=== PATIENT | female | born 1935 | race Caucasian/White ===

== ENCOUNTER 2017-08-12 16:44 | Inpatient (IN) | payer MEDICARE, OTHER ==
--- NOTE | 2017-08-12 17:11 | ED Physician Chart ---
ED Chief Complaint/HPI - Patient Information Date Seen:: 08/12/17 Time Seen:: 16:50 Chief Complaint:: fever generalized weakness History of Present Illness:: 81 yr old female from intermediate facility with generalized weakness fevers pt states having trouble walking and feeling weak and usp she is confused and altered Allergies:: Allergies Allergy/AdvReac Type Severity Reaction Status Date / Time No Known Allergies Allergy Verified 08/12/17 16:56 Vitals:: Vital Signs - 8 hr 08/12/17 16:47 Temp 99.9 F HR 77 RR 18 BP 135/49 O2 Sat % 95 Historian:: Patient, Medical Records ED Review of Systems - Review of Systems General/Constitutional: Fever, Weakness Skin: No skin lesions, No rash, No bruising Head: No headache, No light-headedness Eyes: No loss of vision, No pain, No diplopia ENT: No earache, No nasal drainage, No sore throat, No tinnitus Neck: No neck pain, No swelling, No thyromegaly, No stiffness, No mass noted Cardio Vascular: No chest pain, No palpitations, No PND, No orthopnea, No edema Pulmonary: No SOB, No cough, No sputum, No wheezing GI: No nausea, No vomiting, No diarrhea, No pain, No melena, No hematochezia, No constipation, No hematemesis G/U: No dysuria, No frequency, No hematuria Musculoskeletal: Bone or joint pain, No back pain, No muscle pain Endocrine: No polyuria, No polydipsia Psychiatric: No prior psych history, No depression, No anxiety, No suicidal ideation Hematopoietic: No bruising, No lymphadenopathy Allergic/Immuno: No urticaria, No angioedema Neurological: Weakness ED Past Medical History - Past Medical History Past Medical History: HTN, Thyroid disorder ED Physical Exam - Physical Examination General/Constitutional: Awake, Well-developed, well-nourished, Alert, GCS 15, Ambulatory Head: Atraumatic Eyes: Lids, conjuctiva normal, PERRL, EOMI Skin: No rash ENMT: External ears, nose nl Neck: Nontender Respiratory: Nl effort/Exclusion Cardio Vascular: RRR, No murmur, gallop, rubs GI: No tenderness/rebounding/guarding : No CVA tenderness Extremities: Full ROM, Normal digits & nails (trouble walking feeling weak not able to lift legs due to weakness) Neuro/Psych: Alert/oriented, DTR's symmetric ED Assessment - Assessment General Assessment: generalized weakness ED Septic Shock - . Is Septic Shock (SBP<90, OR Lactate>4 mmol\L) present?: No - <6hrs of presentation: Vital Signs: Vital Signs - 8 hr 08/12/17 16:47 Temp 99.9 F HR 77 RR 18 BP 135/49 O2 Sat % 95 ED Reassessment (Disposition) - Reassessment Reassessment Condition:: Unchanged - Diagnosis Diagnosis:: generalized weakness r/o sepsis ureo sepsis - Patient Disposition Discharge/Transfer:: Acute Care w/in this hosp
[2017-08-12] MEDS ORDERED: Sodium Chloride 0.9% 1,000 ML IV ONE (17:17)
[2017-08-12 17:38] LABS: % BASOPHILS 0.6 % (0.0-2.0); % EOSINOPHILS 3.6 % (0.0-5.0); % LYMPHOCYTES 23.9 % (20.0-50.0); % MONOCYTES 10.1 % (2.0-10.0); % NEUTROPHILS 61.8 % (40.0-80.0); BASOPHILE ABSOLUTE 0.1 Th/cumm (0-0.2); EOSINOPHILE ABSOLUTE 0.3 Th/cmm (0.1-0.4); HEMATOCRIT 37.1 % (41.0-60); HEMOGLOBIN 12.3 gm/dL (12-16); MEAN CELL VOLUME 89.3 fl (81-100); MEAN CORPUSCULAR HEMOGLOBIN 29.7 pg (27.0-31.0); MEAN CORPUSCULAR HGB CONC 33.3 pg (28.0-36.0); MEAN PLATELET VOLUME 6.4 fl; MONOCYTE ABSOLUTE 0.8 Th/cmm (0.3-1.0); NEUTROPHILE ABSOLUTE 5.2 Th/cmm (1.8-8.0); PLATELET COUNT 269 Th/cmm (150-400); RED BLOOD COUNT 4.15 Mil/cmm (3.80-5.20); RED CELL DISTRIBUTION WIDTH 12.8 % (11.5-20.0); WHITE BLOOD COUNT 8.4 Th/cmm (4.8-10.8)
[2017-08-12 17:40] LABS: URINE MICROSCOPIC INDICATED? YES; URINE SOURCE CLEAN C
[2017-08-12 17:54] LABS: ALB/GLOB RATIO 1.1 (1.0-1.8); ALBUMIN 3.4 gm/dL (3.7-5.3); ALKALINE PHOSPHATASE 71 U/L (34-104); ANION GAP 12.5 (7.0-16.0); BILIRUBIN,TOTAL 0.4 mg/dL (0.3-1.0); BUN - UREA NITROGEN 22 mg/dL (7-25); CALCIUM SERUM 9.4 mg/dL (8.6-10.3); CARBON DIOXIDE 25.2 mEq/L (21.0-31.0); CHLORIDE 100 mEq/L (98-107); CREATININE - SERUM 0.9 mg/dL (0.6-1.2); GLUCOSE 103 mg/dL (70-105); POTASSIUM SERUM 3.7 mEq/L (3.5-5.1); SGOT 15 U/L (13-39); SGPT/ALT 13 U/L (7-52); SODIUM SERUM 134 mEq/L (136-145); TOTAL PROTEIN,SERUM 6.4 gm/dL (6.0-8.3)
[2017-08-12 18:09] LABS: URINE CLARITY CLOUDY (CLEAR); URINE COLOR BROWN
[2017-08-12 18:10] LABS: URINE LEUKOCYTE ESTERASE LARGE (NEGATIVE)
[2017-08-12 18:11] LABS: URINE NITRATE NEGATIVE (NEGATIVE); URINE UROBILINOGEN 0.2 E.U./dL (0.2 - 1.0)
[2017-08-12 18:12] LABS: URINE BLOOD SMALL (NEGATIVE); URINE PROTEIN 100 mg/dL (NEGATIVE)
[2017-08-12 18:13] LABS: URINE BILIRUBIN SMALL (NEGATIVE)
[2017-08-12 18:14] LABS: URINE GLUCOSE (UA) NEGATIVE (NEGATIVE)
[2017-08-12 18:15] LABS: URINE KETONE NEGATIVE (NEGATIVE)
[2017-08-12] MEDS ORDERED: Piperacillin Sodium/Tazobact 3.375 gm Vial IV ONE (18:17)
[2017-08-12 18:19] LABS: URINE BACTERIA MANY /hpf (NONE SEEN); URINE EPITHELIAL CELLS FEW /lpf (FEW); URINE WBC >100 /hpf (0-5)
[2017-08-12] MEDS: D5-0.45NS 1,000 ML IV SCH (21:10)
[2017-08-12] MEDS ORDERED: Pneumococcal Vaccine 0.5 mL Vial IM ONE (23:25)
--- NOTE | 2017-08-12 23:33 | Consultation ---
Consult Note - Consult Note Service Date: 08/12/17 Referring Physician: Kvng Gunderson Consult Note: PHYSICIAN Consultation Note: Date of Admission: 08/12/17 Purpose of Consultation: UTI Chief Complaint: Patient CATE TOVAR was admitted to [facility] with UROSEPSIS. History of Present Illness: 81-year-old female with history of obesity, HTN, hypothyroidism brought from [facility] for generalized weakness and fever. On initial evaluation, her temeprature was 99.9 F and WBC Count was 8900. URinalysis showed pyuria and bacteriuria. UTI was diagnosed and Zosyn was started. ID Consult was called for antibiotic management. Past Medical History: obesity, HTN, hypothyroidism. Allergies Allergy/AdvReac Type Severity Reaction Status Date / Time No Known Allergies Allergy Verified 08/12/17 16:56 Vital Signs Temp 97.5 F 08/12/17 20:19 Pulse 71 08/12/17 20:19 Resp 18 08/12/17 20:19 BP 133/49 08/12/17 20:19 Pulse Ox 95 08/12/17 20:19 Intake & Output 08/12/17 08/12/17 08/13/17 06:59 18:59 06:59 Weight (lbs) 86.183 kg Other: Weight Source Patient stated Laboratory Results - last 24 hr 08/12/17 08/12/17 08/12/17 17:25 17:25 17:25 WBC 8.4 RBC 4.15 Hgb 12.3 Hct 37.1 L MCV 89.3 MCH 29.7 MCHC Differential 33.3 RDW 12.8 Plt Count 269 MPV 6.4 Neutrophils % 61.8 Lymphocytes % 23.9 Monocytes % 10.1 H Eosinophils % 3.6 Basophils % 0.6 Sodium 134 L Potassium 3.7 Chloride 100 Carbon Dioxide 25.2 Anion Gap 12.5 BUN 22 Creatinine 0.9 Est GFR ( Amer) TNP Est GFR (Non-Af Amer) TNP BUN/Creatinine Ratio 24.4 Glucose 103 Whole Bld Lactic Acid 0.87 Calcium 9.4 Total Bilirubin 0.4 AST 15 ALT 13 Alkaline Phosphatase 71 Total Protein 6.4 Albumin 3.4 L Globulin 3.0 Albumin/Globulin Ratio 1.1 Urine Source Urine Color Urine Clarity Urine pH Ur Specific [place] Urine Protein Urine Glucose (UA) Urine Ketones Urine Blood Urine Nitrate Urine Bilirubin Urine Urobilinogen Ur Leukocyte Esterase Urine RBC Urine WBC Ur Epithelial Cells Urine Bacteria 08/12/17 17:30 WBC RBC Hgb Hct MCV MCH MCHC Differential RDW Plt Count MPV Neutrophils % Lymphocytes % Monocytes % Eosinophils % Basophils % Sodium Potassium Chloride Carbon Dioxide Anion Gap BUN Creatinine Est GFR ( Amer) Est GFR (Non-Af Amer) BUN/Creatinine Ratio Glucose Whole Bld Lactic Acid Calcium Total Bilirubin AST ALT Alkaline Phosphatase Total Protein Albumin Globulin Albumin/Globulin Ratio Urine Source CLEAN C Urine Color BROWN Urine Clarity CLOUDY H Urine pH 5.0 Ur Specific [place] 1.005 Urine Protein 100 H Urine Glucose (UA) NEGATIVE Urine Ketones NEGATIVE Urine Blood SMALL H Urine Nitrate NEGATIVE Urine Bilirubin SMALL H Urine Urobilinogen 0.2 Ur Leukocyte Esterase LARGE H Urine RBC 5-10 H Urine WBC >100 H Ur Epithelial Cells FEW Urine Bacteria MANY H Home Medication Medication Instructions Recorded Type Calcium Carb & Citrate/Vit D3 1 tab PO DAILY 08/12/17 History [Calcium + D3 ER Tablet] Conjugated Estrogens [Premarin] 0.5 mg PO DAILY 08/12/17 History Cyclosporine [Restasis] 0.05 OP DAILY 08/12/17 History Ferrous Sulfate [Iron] 1 tab PO DAILY 08/12/17 History Gabapentin 1 tab PO DAILY 08/12/17 History Hydrochlorothiazide 1 tab PO DAILY 08/12/17 History Irbesartan [Avapro] 1 tab PO BID 08/12/17 History Lansoprazole 20 mg PO DAILY 08/12/17 History Latanoprost 0.005% Ophth Soln 1 drop HS 08/12/17 History [Xalatan 0.005% Ophth Soln] Levothyroxine [Synthroid] 0.1 mg PO DAILY 08/12/17 History Metoprolol Tartrate 1 tab PO DAILY 08/12/17 History Multivitamin [Multivitamins] 1 tab PO DAILY 08/12/17 History Potassium Chloride [Klor-Con 8] 1 tab PO DAILY 08/12/17 History Prednisone 10 mg PO DAILY 08/12/17 History Sertraline HCl [Zoloft] 100 mg PO BID 08/12/17 History Current Medications Generic Name Dose Route Start Last Admin Trade Name Freq PRN Reason Stop Dose Admin Estrogens Conjugated 0.5 mg 08/13/17 09:00 Premarin PO 10/12/17 08:59 DAILY RAFAEL Protocol Ferrous Sulfate mg 08/13/17 09:00 Iron PO 10/12/17 08:59 DAILY RAFAEL Gabapentin mg 08/13/17 09:00 Neurontin PO 10/12/17 08:59 DAILY RAFAEL Hydrochlorothiazide mg 08/13/17 09:00 Hctz PO 10/12/17 08:59 DAILY RAFAEL Dextrose/Sodium Chloride 1,000 mls @ 75 mls/hr 08/12/17 20:15 08/12/17 21:10 D5-0.45ns IV 10/11/17 20:14 75 mls/hr .[id number] RAFAEL Administration Piperacillin Sod/Tazobactam 50 mls @ 100 mls/hr 08/13/17 00:00 Sod 3.375 gm/ Sodium Chloride IV 10/12/17 00:00 Q6HR RAFAEL Latanoprost 1 drop 08/13/17 21:00 Xalatan 0.005% Ophth Soln EACH EYE 10/12/17 20:59 HS RAFAEL Levothyroxine Sodium 0.1 mg 08/13/17 09:00 Synthroid PO 10/12/17 08:59 DAILY RAFAEL Metoprolol Tartrate 50 mg 08/13/17 09:00 Lopressor PO 10/12/17 08:59 DAILY RAFAEL Miscellaneous 1 tab 08/13/17 09:00 Calcium Carb & Citrate/Vit D3 [Calcium + D3 Er Tablet] PO 10/12/17 08:59 DAILY RAFAEL Miscellaneous 0.05 unit 08/13/17 09:00 Cyclosporine [Restasis] OP 10/12/17 08:59 DAILY RAFAEL Miscellaneous 1 tab 08/13/17 09:00 Irbesartan [Avapro] PO 10/12/17 08:59 BID RAFAEL Miscellaneous 20 mg 08/13/17 09:00 Lansoprazole [Lansoprazole] PO 10/12/17 08:59 DAILY RAFAEL Miscellaneous 1 tab 08/13/17 09:00 Multivitamin [Multivitamins] PO 10/12/17 08:59 DAILY RAFAEL Miscellaneous 1 tab 08/13/17 09:00 Potassium Chloride [Klor-Con 8] PO 10/12/17 08:59 DAILY RAFAEL Miscellaneous 10 mg 08/13/17 09:00 Prednisone [Prednisone] PO 10/12/17 08:59 DAILY RAFAEL Miscellaneous 100 mg 08/13/17 09:00 Sertraline Hcl [Zoloft] PO 10/12/17 08:59 BID RAFAEL Review of Systems: A 12 point ROS was reviewed with the pertinent positive and negatives noted in the HPI. Social History Smoking Status Unknown if ever smoked Family Medical History Non-significant. Physical Exam: General: Obese HEENT: HEAD: NC NT oral cavity: moist, pink tongue. EYED: No pallor, no icterus. Pupil PERRLA. EOMI. Neck: Supple, no JVD. No carotid bruit. Cardio: S1 and S2 WNL, no murmur. Respiratory: CTAP. Abdominal: Soft, NT ND BS present. Genital/Urinary: deferred Extremities: NCCE Neurological: AAOx3. Assessment: 1. UTI. 2. HTN. 3. OBESITY. 4. Hypothyroidism. Plan: Continue Zosyn, follow up cs and renal us. Thank you, Dr Gunderson for involving me in taking care of this patient. Candace, Sheldon Dong M.D. [id number]
[2017-08-13] MEDS ORDERED: Piperacillin Sodium/Tazobact 2.25 gm Vial IV ONE ×2 (00:25→05:29)
[2017-08-13 05:04] LABS: % BASOPHILS 0.1 % (0.0-2.0); % EOSINOPHILS 4.5 % (0.0-5.0); % LYMPHOCYTES 18.5 % (20.0-50.0); % MONOCYTES 9.3 % (2.0-10.0); % NEUTROPHILS 67.6 % (40.0-80.0); EOSINOPHILE ABSOLUTE 0.3 Th/cmm (0.1-0.4); HEMATOCRIT 34.1 % (41.0-60); HEMOGLOBIN 11.5 gm/dL (12-16); LYMPHOCYTE ABSOLUTE 1.3 Th/cmm (1.5-3.0); MEAN CORPUSCULAR HEMOGLOBIN 29.6 pg (27.0-31.0); MEAN CORPUSCULAR HGB CONC 33.6 pg (28.0-36.0); MEAN PLATELET VOLUME 6.5 fl; MONOCYTE ABSOLUTE 0.7 Th/cmm (0.3-1.0); NEUTROPHILE ABSOLUTE 4.7 Th/cmm (1.8-8.0); PLATELET COUNT 236 Th/cmm (150-400); RED BLOOD COUNT 3.88 Mil/cmm (3.80-5.20); RED CELL DISTRIBUTION WIDTH 12.9 % (11.5-20.0)
[2017-08-13 05:20] LABS: ANION GAP 10.2 (7.0-16.0); BUN - UREA NITROGEN 16 mg/dL (7-25); CALCIUM SERUM 8.5 mg/dL (8.6-10.3); CARBON DIOXIDE 24.4 mEq/L (21.0-31.0); CHLORIDE 104 mEq/L (98-107); CHOLESTEROL 138 mg/dL (<200); CREATININE - SERUM 0.9 mg/dL (0.6-1.2); GLUCOSE 117 mg/dL (70-105); HDL -HIGH DENSITY LIPOPROTEIN 28 mg/dL (23-92); POTASSIUM SERUM 3.6 mEq/L (3.5-5.1); SODIUM SERUM 135 mEq/L (136-145); TRIGLYCERIDES 131 mg/dL (<150)
[2017-08-13 06:22] VITALS: BP 133/49
[2017-08-13] MEDS: Pantoprazole 40 mg EC Tab PO SCH (06:48)
[2017-08-13] MEDS: Levothyroxine 0.1 Mg Tab PO SCH (06:48)
--- NOTE | 2017-08-13 08:16 | Diagnostic Imaging Report ---
CHEST X-RAY: AP view INDICATION: Shortness of breath COMPARISON: None FINDINGS: There is elevation of the right hemidiaphragm. Retrocardiac density is noted. There may be left basal pleural thickening. No focal consolidation. Heart size at the upper limits of normal. Atherosclerosis is noted. Degenerative changes of the spine are noted with scoliosis. Degenerative changes of bilateral shoulders are noted. IMPRESSION: Retrocardiac density. There this may be due to a large hiatal hernia. If indicated, CT would further clarify. Atherosclerotic vascular disease. Elevation of the right hemidiaphragm.
[2017-08-13] MEDS ORDERED: CYCLOSPORINE OP SCH (09:00)
[2017-08-13] MEDS ORDERED: LANSOPRAZOLE 20 MG PO SCH (09:00)
[2017-08-13] MEDS ORDERED: Non-Formulary Item 1 EA (Multivitamin [Multivitamins] 1 TAB) PO SCH (09:00)
--- NOTE | 2017-08-13 09:03 | Diagnostic Imaging Report ---
Head CT without intravenous contrast Indication: Altered mental status Comparison: None Technique: Axial images were obtained from the vertex to the skull base without IV contrast. Coronal reconstructions were made. Total DLP: 570, [id number] FINDINGS: Images of the brain obtained without contrast demonstrate no evidence of acute hemorrhage. Atrophy is noted. Diffuse white matter disease noted. The ventricles and basal cisterns are patent. No mass effect or midline shift. No evidence of a skull fracture or focal soft tissue swelling. The visualized paranasal sinuses are clear. IMPRESSION No evidence of acute intracranial hemorrhage. Diffuse supratentorial white matter disease which is nonspecific and may be due to chronic microvessel ischemia. Atrophy. Atherosclerotic vascular disease.
[2017-08-13] MEDS ORDERED: VTE Chemical Prophylaxis Screen/Admission MC PRN (10:00)
[2017-08-13] MEDS: Calcium Carb/Vit D 500 mg/200 U Tab PO SCH (10:03)
[2017-08-13] MEDS: Ferrous Sulfate 325 MG TAB PO SCH (10:03)
[2017-08-13] MEDS: Multivitamin Tab PO SCH (10:05)
[2017-08-13] MEDS: Potassium Chloride 10 mEq ER Tab PO SCH (10:07)
--- NOTE | 2017-08-13 12:08 | Infectious Disease Prog Note ---
Infectious Disease Subjective - Review of Systems Service Date: 08/13/17 Subjective: No fever. mentation improved. Infectious Disease Objective - Results Result Diagrams: 08/13/17 04:55 08/13/17 04:55 Recent Labs: Laboratory Last Values WBC 7.0 Th/cmm (4.8-10.8) 08/13/17 04:55 RBC 3.88 Mil/cmm (3.80-5.20) 08/13/17 04:55 Hgb 11.5 gm/dL (12-16) L 08/13/17 04:55 Hct 34.1 % (41.0-60) L 08/13/17 04:55 MCV 88.0 fl (81-100) 08/13/17 04:55 MCH 29.6 pg (27.0-31.0) 08/13/17 04:55 MCHC Differential 33.6 pg (28.0-36.0) 08/13/17 04:55 RDW 12.9 % (11.5-20.0) 08/13/17 04:55 Plt Count 236 Th/cmm (150-400) 08/13/17 04:55 MPV 6.5 fl 08/13/17 04:55 Neutrophils % 67.6 % (40.0-80.0) 08/13/17 04:55 Lymphocytes % 18.5 % (20.0-50.0) L 08/13/17 04:55 Monocytes % 9.3 % (2.0-10.0) 08/13/17 04:55 Eosinophils % 4.5 % (0.0-5.0) 08/13/17 04:55 Basophils % 0.1 % (0.0-2.0) 08/13/17 04:55 Sodium 135 mEq/L (136-145) L 08/13/17 04:55 Potassium 3.6 mEq/L (3.5-5.1) 08/13/17 04:55 Chloride 104 mEq/L (98-107) 08/13/17 04:55 Carbon Dioxide 24.4 mEq/L (21.0-31.0) 08/13/17 04:55 Anion Gap 10.2 (7.0-16.0) 08/13/17 04:55 BUN 16 mg/dL (7-25) 08/13/17 04:55 Creatinine 0.9 mg/dL (0.6-1.2) 08/13/17 04:55 Est GFR ( Amer) TNP 08/13/17 04:55 Est GFR (Non-Af Amer) TNP 08/13/17 04:55 BUN/Creatinine Ratio 17.8 08/13/17 04:55 Glucose 117 mg/dL (70-105) H 08/13/17 04:55 Whole Bld Lactic Acid 0.87 mmol/L (0.60-1.99) 08/12/17 17:25 Calcium 8.5 mg/dL (8.6-10.3) L 08/13/17 04:55 Total Bilirubin 0.4 mg/dL (0.3-1.0) 08/12/17 17:25 AST 15 U/L (13-39) 08/12/17 17:25 ALT 13 U/L (7-52) 08/12/17 17:25 Alkaline Phosphatase 71 U/L (34-104) 08/12/17 17:25 Total Protein 6.4 gm/dL (6.0-8.3) 08/12/17 17:25 Albumin 3.4 gm/dL (3.7-5.3) L 08/12/17 17:25 Globulin 3.0 gm/dL 08/12/17 17:25 Albumin/Globulin Ratio 1.1 (1.0-1.8) 08/12/17 17:25 Triglycerides 131 mg/dL (<150) 08/13/17 04:55 Cholesterol 138 mg/dL (<200) 08/13/17 04:55 LDL Cholesterol Direct 83 mg/dL (75-193) 08/13/17 04:55 HDL Cholesterol 28 mg/dL (23-92) 08/13/17 04:55 TSH 3.47 uIU/ml (0.34-5.60) 08/13/17 04:55 Urine Source CLEAN C 08/12/17 17:30 Urine Color BROWN 08/12/17 17:30 Urine Clarity CLOUDY (CLEAR) H 08/12/17 17:30 Urine pH 5.0 (4.6 - 8.0) 08/12/17 17:30 Ur Specific [place] 1.005 (1.005-1.030) 08/12/17 17:30 Urine Protein 100 mg/dL (NEGATIVE) H 08/12/17 17:30 Urine Glucose (UA) NEGATIVE mg/dL (NEGATIVE) 08/12/17 17:30 Urine Ketones NEGATIVE mg/dL (NEGATIVE) 08/12/17 17:30 Urine Blood SMALL (NEGATIVE) H 08/12/17 17:30 Urine Nitrate NEGATIVE (NEGATIVE) 08/12/17 17:30 Urine Bilirubin SMALL (NEGATIVE) H 08/12/17 17:30 Urine Urobilinogen 0.2 E.U./dL (0.2 - 1.0) 08/12/17 17:30 Ur Leukocyte Esterase LARGE (NEGATIVE) H 08/12/17 17:30 Urine RBC 5-10 /hpf (0-5) H 08/12/17 17:30 Urine WBC >100 /hpf (0-5) H 08/12/17 17:30 Ur Epithelial Cells FEW /lpf (FEW) 08/12/17 17:30 Urine Bacteria MANY /hpf (NONE SEEN) H 08/12/17 17:30 - Physical Exam Vitals and I&O: Vital Signs Temp 96.3 F 08/13/17 12:01 Pulse 72 08/13/17 12:01 Resp 18 08/13/17 12:01 BP 149/73 08/13/17 12:01 Pulse Ox 95 08/13/17 12:01 Intake & Output 08/12/17 08/13/17 08/13/17 18:59 06:59 18:59 Intake Total 50 50 Output Total 300 Balance -250 50 Weight (lbs) 86.183 kg 68.039 kg Intake: Intake, IV Amount 50 50 Piperacillin Sodium/ 50 50 Tazobact 2.25 gm In Sodium Chloride 0.9% 50 ml @ 100 mls/hr IV Q6HR [facility] Rx#:[id number] Output: Urine 300 Other: # Bowel Movements 0 Weight Source Patient stated Bedscale Active Medications: Current Medications Calcium/Vitamin D (Oscal W/Vitamin D) 1 tab PO DAILY RAFAEL Stop: 10/12/17 08:59 Last Admin: 08/13/17 10:03 Dose: 1 tab Estrogens Conjugated (Premarin) 0.6 mg PO DAILY [facility]; Protocol Stop: 10/13/17 08:59 Ferrous Sulfate (Iron) 325 mg PO DAILY RAFAEL Stop: 10/12/17 08:59 Last Admin: 08/13/17 10:03 Dose: 325 mg Gabapentin (Neurontin) 300 mg PO DAILY RAFAEL Stop: 10/12/17 08:59 Last Admin: 08/13/17 10:04 Dose: 300 mg Heparin Sodium (Porcine) (Heparin) 5,000 units SUBQ Q12HR RAFAEL Stop: 10/12/17 20:59 Hydrochlorothiazide (Hctz) 25 mg PO DAILY RAFAEL Stop: 10/12/17 08:59 Last Admin: 08/13/17 10:04 Dose: 25 mg Dextrose/Sodium Chloride (D5-0.45ns) 1,000 mls @ 75 mls/hr IV .[id number] RAFAEL Stop: 10/11/17 20:14 Last Admin: 08/12/17 21:10 Dose: 75 mls/hr Piperacillin Sod/Tazobactam (Sod 2.25 gm/ Sodium Chloride) 50 mls @ 100 mls/hr IV Q6HR RAFAEL Stop: 10/12/17 00:00 Last Admin: 08/13/17 11:05 Dose: 100 mls/hr Latanoprost (Xalatan 0.005% [facility]) 1 drop EACH EYE HS RAFAEL Stop: 10/13/17 20:59 Levothyroxine Sodium (Synthroid) 0.1 mg PO QDAC RAFAEL Stop: 10/12/17 07:29 Last Admin: 08/13/17 06:48 Dose: 0.1 mg Losartan Potassium (Cozaar) 50 mg PO BID RAFAEL Stop: 10/12/17 08:59 Last Admin: 08/13/17 10:04 Dose: 50 mg Metoprolol Tartrate (Lopressor) 50 mg PO DAILY RAFAEL Stop: 10/12/17 08:59 Last Admin: 08/13/17 10:05 Dose: 50 mg Miscellaneous (Cyclosporine [Restasis]) 0.05 unit OP DAILY RAFAEL Stop: 10/12/17 08:59 Miscellaneous ([employer] Prophylaxis Screen/ Admission) 1 [facility] PRN PRN PRN Reason: PROTOCOL Stop: 10/12/17 09:59 Multivitamins/Vitamin C (Theragran) 1 tab PO DAILY RAFAEL Stop: 10/12/17 08:59 Last Admin: 08/13/17 10:05 Dose: 1 tab Pantoprazole Sodium (Protonix) 40 mg PO DAILY@0700 [facility] Stop: 10/12/17 06:59 Last Admin: 08/13/17 06:48 Dose: 40 mg Potassium Chloride (Klor-Con) 10 meq PO DAILY [facility] Stop: 10/12/17 08:59 Last Admin: 08/13/17 10:07 Dose: 10 meq Prednisone (Deltasone) 10 mg PO DAILY RAFAEL Stop: 10/12/17 08:59 Last Admin: 08/13/17 10:06 Dose: 10 mg Sertraline HCl (Zoloft) 100 mg PO BID [facility] Stop: 10/12/17 08:59 Last Admin: 08/13/17 10:06 Dose: 100 mg General: no acute distress, well developed, well nourished HEENT: atraumatic, normocephalic, PERRLA Neck: supple, no thyromegaly Cardiovascular: S1S2, regular Lungs: clear to auscultation bilaterally, clear to percussion Abdomen: soft, no tender, no distended, no mass Extremities: no cyanosis, no clubbing Neurological: awake, alert, oriented Skin: intact Infectious Disease Assmt/Plan - Assessment Assessment: 1. UTI. 2. HTN. 3. OBESITY. 4. Hypothyroidism. - Plan Plan: Continue Zosyn. F/u culture report. renal u/s.
--- NOTE | 2017-08-13 13:27 | Diagnostic Imaging Report ---
Renal ultrasound HISTORY: Urosepsis. COMPARISON: None Technique: Sonography of the kidneys and urinary bladder was performed in multiple planes. FINDINGS: Exam is limited due to body habitus. The right kidney measures 9.5 x 6.4 cm. The renal margins are poorly defined assessment focal lesions. There is a sonolucent lesion seen along the mid kidney measuring 2.5 x 2.3 cm with possible small calcification. Assessment for right hydronephrosis is limited, however, no gross hydronephrosis identified The left kidney measures 8.9 x 4.7 cm. The left renal margin is not well-defined, however, no obvious focal lesions or hydronephrosis. There is increased echogenicity of the kidneys. The urinary bladder is collapsed containing a Garcia catheter. Urinary bladder wall thickening is noted. IMPRESSION: Markedly Limited exam due to body habitus. Right mid renal lesion probably representing a cyst with a calcification. This lesion measures 2.5 x 2.3 cm. Assessment for hydronephrosis is limited, however, no gross hydronephrosis identified. If indicated CT follow-up with further clarify. Increased echogenicity of the kidneys which may be due to underlying medical renal disease. Collapsed urinary bladder containing a Garcia catheter. There is urinary bladder wall thickening which may be due to chronic infectious or inflammatory process.
[2017-08-13] MEDS: D5-0.45NS 1,000 ML IV SCH (16:04)
[2017-08-14] MEDS: D5-0.45NS 1,000 ML IV SCH ×2 (05:37→23:48)
[2017-08-14] MEDS: Pantoprazole 40 mg EC Tab PO SCH (06:39)
[2017-08-14] MEDS: Levothyroxine 0.1 Mg Tab PO SCH (06:39)
--- NOTE | 2017-08-14 07:12 | History & Physical ---
ADMIT DATE: HISTORY OF PRESENT ILLNESS: This is a patient I saw her last night. The patient is well known to me from ____ which is a board and care. The patient has been located with history of multiple medical problems including history of severe osteoarthritis, history of osteoporosis, history of fibromyalgia, and history of hypothyroidism, obesity, and hypertension. The patient apparently has not been eating for several days, has been having urinary discomfort, and the patient came to the Emergency Room ____, the patient was altered. The patient was diagnosed as urinary infection, sepsis with urinary tract infection, and the patient was admitted. The patient also has history of dementia. PAST MEDICAL HISTORY: Obesity, hypertension, hypothyroidism, dementia, fibromyalgia, osteoarthritis, osteoporosis. PHYSICAL EXAMINATION: HEAD: Normal. ENT: Normal. NECK: Supple, nontender. LUNGS: Clear. CARDIOVASCULAR SYSTEM: S1 and S2 heard. ABDOMEN: Soft. Bowel sounds are heard. CENTRAL NERVOUS SYSTEM: Decreased sensorium, ____ confusion. LABORATORY DATA: The patient's laboratory data was reviewed. Also, I reviewed her medication list and the patient's urinalysis showed infection. DIAGNOSES: Altered level of consciousness, encephalopathy, urinary tract infection, urosepsis, hypertension, obesity, hypothyroidism, history of fibromyalgia, history of osteoarthritis, history of osteoporosis, and possible sleep apnea. The patient is being admitted. I will go ahead and do a complete infectious workup and give her antibiotics as vancomycin and Zosyn and I will call Infectious Disease doctor to see the patient, also Dr. Munoz to see the patient, and I will also have ____ to see the patient. JOB# [id number]
--- NOTE | 2017-08-14 07:15 | Consultation ---
DATE OF CONSULTATION: 08/13/2017 REFERRING PHYSICIAN: Dr. Gunderson. Thank you very much Dr. Gunderson for this consultation. HISTORY OF PRESENT ILLNESS: This is a 54-year-old female with retirement resident, presented with weakness and some altered mentation has improved since coming in. Denies any shortness of breath, was diagnosed with a UTI and admitted for treatment and management. The patient has no leukocytosis on admission. PAST MEDICAL HISTORY: Significant for dementia, obesity, hypertension. SOCIAL HISTORY: No smoking, drinking, or drug use. REVIEW OF SYSTEMS: GENERAL: Some weakness and fatigue. CARDIOVASCULAR: No chest pain. RESPIRATORY: No shortness of breath. GASTROINTESTINAL: No nausea or vomiting. PHYSICAL EXAMINATION: GENERAL: Awake, alert, not in acute distress. VITAL SIGNS: Temperature is 97.1, pulse 77, respiration is 18, blood pressure is 158/70, saturation 95%. HEENT: Atraumatic, normocephalic. Pupils are equal and reactive to light and accommodation. Ears, nose and throat normal. NECK: Supple. No JVD. CHEST: There are good breath sounds bilaterally. No wheezing or crackles. HEART: Regular rate and rhythm. ABDOMEN: Soft. EXTREMITIES: No edema. IMAGING DATA: Chest x-ray shows density above the diaphragm area on the left side with atelectasis. LABORATORY DATA: WBC 7.0, hemoglobin 11.5, hematocrit 34.1, platelets 236. Sodium 135, potassium 3.6, BUN 16, creatinine 0.9. UA is cloudy, positive for WBCs and bacteria, leukocyte esterase. IMPRESSION: 1. This is an 81-year-old female with urinary tract infection. 2. Probably atelectasis of the lower thickening in the left lower lobe area. PLAN: We will do CT chest for further evaluation. Continue IV antibiotics and hydration and supportive care. Thank you very much for this consultation. We will follow the patient with you. JOB# [id number]
[2017-08-14] MEDS ORDERED: Probiotic Screen MC PRN (08:15)
[2017-08-14] MEDS: Lactobacillus Rhamnosus GG 15 Billion CFU CAP.SPRINK PO SCH (08:53)
[2017-08-14] MEDS: Multivitamin Tab PO SCH (08:53)
[2017-08-14] MEDS: Ferrous Sulfate 325 MG TAB PO SCH (08:53)
[2017-08-14] MEDS: Calcium Carb/Vit D 500 mg/200 U Tab PO SCH (08:53)
[2017-08-14] MEDS: Potassium Chloride 10 mEq ER Tab PO SCH (08:54)
--- NOTE | 2017-08-14 11:45 | Internal Medicine Prog Note ---
Internal Medicine Subjective - Subjective Service Date: 08/14/17 Patient seen and examined:: with staff Patient is:: awake Per staff patient has:: tolerating meds Internal Medicine Objective - Results Result Diagrams: 08/13/17 04:55 08/13/17 04:55 Recent Labs: Laboratory Last Values WBC 7.0 Th/cmm (4.8-10.8) 08/13/17 04:55 RBC 3.88 Mil/cmm (3.80-5.20) 08/13/17 04:55 Hgb 11.5 gm/dL (12-16) L 08/13/17 04:55 Hct 34.1 % (41.0-60) L 08/13/17 04:55 MCV 88.0 fl (81-100) 08/13/17 04:55 MCH 29.6 pg (27.0-31.0) 08/13/17 04:55 MCHC Differential 33.6 pg (28.0-36.0) 08/13/17 04:55 RDW 12.9 % (11.5-20.0) 08/13/17 04:55 Plt Count 236 Th/cmm (150-400) 08/13/17 04:55 MPV 6.5 fl 08/13/17 04:55 Neutrophils % 67.6 % (40.0-80.0) 08/13/17 04:55 Lymphocytes % 18.5 % (20.0-50.0) L 08/13/17 04:55 Monocytes % 9.3 % (2.0-10.0) 08/13/17 04:55 Eosinophils % 4.5 % (0.0-5.0) 08/13/17 04:55 Basophils % 0.1 % (0.0-2.0) 08/13/17 04:55 Sodium 135 mEq/L (136-145) L 08/13/17 04:55 Potassium 3.6 mEq/L (3.5-5.1) 08/13/17 04:55 Chloride 104 mEq/L (98-107) 08/13/17 04:55 Carbon Dioxide 24.4 mEq/L (21.0-31.0) 08/13/17 04:55 Anion Gap 10.2 (7.0-16.0) 08/13/17 04:55 BUN 16 mg/dL (7-25) 08/13/17 04:55 Creatinine 0.9 mg/dL (0.6-1.2) 08/13/17 04:55 Est GFR ( Amer) TNP 08/13/17 04:55 Est GFR (Non-Af Amer) TNP 08/13/17 04:55 BUN/Creatinine Ratio 17.8 08/13/17 04:55 Glucose 117 mg/dL (70-105) H 08/13/17 04:55 Whole Bld Lactic Acid 0.87 mmol/L (0.60-1.99) 08/12/17 17:25 Calcium 8.5 mg/dL (8.6-10.3) L 08/13/17 04:55 Total Bilirubin 0.4 mg/dL (0.3-1.0) 08/12/17 17:25 AST 15 U/L (13-39) 08/12/17 17:25 ALT 13 U/L (7-52) 08/12/17 17:25 Alkaline Phosphatase 71 U/L (34-104) 08/12/17 17:25 Total Protein 6.4 gm/dL (6.0-8.3) 08/12/17 17:25 Albumin 3.4 gm/dL (3.7-5.3) L 08/12/17 17:25 Globulin 3.0 gm/dL 08/12/17 17:25 Albumin/Globulin Ratio 1.1 (1.0-1.8) 08/12/17 17:25 Triglycerides 131 mg/dL (<150) 08/13/17 04:55 Cholesterol 138 mg/dL (<200) 08/13/17 04:55 LDL Cholesterol Direct 83 mg/dL (75-193) 08/13/17 04:55 HDL Cholesterol 28 mg/dL (23-92) 08/13/17 04:55 TSH 3.47 uIU/ml (0.34-5.60) 08/13/17 04:55 Urine Source CLEAN C 08/12/17 17:30 Urine Color BROWN 08/12/17 17:30 Urine Clarity CLOUDY (CLEAR) H 08/12/17 17:30 Urine pH 5.0 (4.6 - 8.0) 08/12/17 17:30 Ur Specific [place] 1.005 (1.005-1.030) 08/12/17 17:30 Urine Protein 100 mg/dL (NEGATIVE) H 08/12/17 17:30 Urine Glucose (UA) NEGATIVE mg/dL (NEGATIVE) 08/12/17 17:30 Urine Ketones NEGATIVE mg/dL (NEGATIVE) 08/12/17 17:30 Urine Blood SMALL (NEGATIVE) H 08/12/17 17:30 Urine Nitrate NEGATIVE (NEGATIVE) 08/12/17 17:30 Urine Bilirubin SMALL (NEGATIVE) H 08/12/17 17:30 Urine Urobilinogen 0.2 E.U./dL (0.2 - 1.0) 08/12/17 17:30 Ur Leukocyte Esterase LARGE (NEGATIVE) H 08/12/17 17:30 Urine RBC 5-10 /hpf (0-5) H 08/12/17 17:30 Urine WBC >100 /hpf (0-5) H 08/12/17 17:30 Ur Epithelial Cells FEW /lpf (FEW) 08/12/17 17:30 Urine Bacteria MANY /hpf (NONE SEEN) H 08/12/17 17:30 - Physical Exam Vitals and I&O: Vital Signs Temp 97.2 F 08/14/17 07:36 Pulse 66 08/14/17 08:54 Resp 18 08/14/17 09:13 BP 171/58 08/14/17 08:54 Pulse Ox 95 08/14/17 07:36 Intake & Output 08/13/17 08/14/17 08/14/17 18:59 06:59 18:59 Intake Total 1150 1150 Output Total 751 Balance 1150 399 Weight (lbs) 150 lb Intake: Intake, IV Amount 1150 1100 D5-0.45NS 1,000 ml @ 75 1000 1000 mls/hr IV .[id number] [facility] Rx #:[id number] Piperacillin Sodium/ 150 100 Tazobact 2.25 gm In Sodium Chloride 0.9% 50 ml @ 100 mls/hr IV Q6HR [facility] Rx#:[id number] Oral 50 Output: Urine 750 Stool 1 Other: Weight Source Bedscale Active Medications: Current Medications Calcium/Vitamin D (Oscal W/Vitamin D) 1 tab PO DAILY [facility] Stop: 10/12/17 08:59 Last Admin: 08/14/17 08:53 Dose: 1 tab Estrogens Conjugated (Premarin) 0.6 mg PO DAILY [facility]; Protocol Stop: 10/13/17 08:59 Ferrous Sulfate (Iron) 325 mg PO DAILY [facility] Stop: 10/12/17 08:59 Last Admin: 08/14/17 08:53 Dose: 325 mg Gabapentin (Neurontin) 300 mg PO DAILY [facility] Stop: 10/12/17 08:59 Last Admin: 08/14/17 08:53 Dose: 300 mg Heparin Sodium (Porcine) (Heparin) 5,000 units SUBQ Q12HR [facility] Stop: 10/12/17 20:59 Last Admin: 08/14/17 08:55 Dose: 5,000 units Hydrochlorothiazide (Hctz) 25 mg PO DAILY [facility] Stop: 10/12/17 08:59 Last Admin: 08/14/17 08:54 Dose: 25 mg Dextrose/Sodium Chloride (D5-0.45ns) 1,000 mls @ 75 mls/hr IV .[id number] [facility] Stop: 10/11/17 20:14 Last Admin: 08/14/17 05:37 Dose: 75 mls/hr Piperacillin Sod/Tazobactam (Sod 2.25 gm/ Sodium Chloride) 50 mls @ 100 mls/hr IV Q6HR [facility] Stop: 10/12/17 00:00 Last Admin: 08/14/17 11:30 Dose: 100 mls/hr Lactobacillus Rhamnosus (Culturelle 15b) 1 each PO DAILY [facility] Stop: 10/13/17 08:59 Last Admin: 08/14/17 08:53 Dose: 1 each Latanoprost (Xalatan 0.005% [facility]) 1 drop EACH EYE HS [facility] Stop: 10/13/17 20:59 Levothyroxine Sodium (Synthroid) 0.1 mg PO QDAC [facility] Stop: 10/12/17 07:29 Last Admin: 08/14/17 06:39 Dose: 0.1 mg Losartan Potassium (Cozaar) 50 mg PO BID [facility] Stop: 10/12/17 08:59 Last Admin: 08/14/17 08:54 Dose: 50 mg Metoprolol Tartrate (Lopressor) 50 mg PO DAILY [facility] Stop: 10/12/17 08:59 Last Admin: 08/14/17 08:54 Dose: 50 mg Miscellaneous (Cyclosporine [Restasis]) 0.05 unit OP DAILY [facility] Stop: 10/12/17 08:59 Miscellaneous (Vte Chemical Prophylaxis Screen/ Admission) 1 ea [facility] PRN PRN PRN Reason: PROTOCOL Stop: 10/12/17 09:59 Miscellaneous (Probiotic Screen) 1 ea MC PRN PRN PRN Reason: PROTOCOL Stop: 10/13/17 08:14 Multivitamins/Vitamin C (Theragran) 1 tab PO DAILY [facility] Stop: 10/12/17 08:59 Last Admin: 08/14/17 08:53 Dose: 1 tab Pantoprazole Sodium (Protonix) 40 mg PO DAILY@0700 [facility] Stop: 10/12/17 06:59 Last Admin: 08/14/17 06:39 Dose: 40 mg Potassium Chloride (Klor-Con) 10 meq PO DAILY [facility] Stop: 10/12/17 08:59 Last Admin: 08/14/17 08:54 Dose: 10 meq Prednisone (Deltasone) 10 mg PO DAILY [facility] Stop: 10/12/17 08:59 Last Admin: 08/14/17 08:53 Dose: 10 mg Sertraline HCl (Zoloft) 100 mg PO BID [facility] Stop: 10/12/17 08:59 Last Admin: 08/14/17 08:53 Dose: 100 mg General: alert HEENT: NC/AT, PERRLA Neck: Supple Lungs: CTAB Cardiovascular: RRR, Normal S1, Normal S2, without murmur Abdomen: soft, non-tender, non-distended Internal Medicine Assmt/Plan - Assessment Assessment: UTI. HTN. OBESITY. Hypothyroidism. - Plan Plan: ivabx as per id follow up labs in am continue current plan of care await for cultures
--- NOTE | 2017-08-14 11:59 | Diagnostic Imaging Report ---
Exam: CT examination of chest HISTORY: Lung atelectasis. Total DLP equals 660 CTDI equals 12.3 Findings: Multiple contiguous thin section of the chest were obtained from thoracic outlet to the upper abdomen without the administration of contrast material therefore the study is limited. The study demonstrates normal appearance of great vessels of the neck. Adenopathy is difficult to exclude due to lack of contrast material The aortic arch calcified. Mediastinal structures midline no abnormal adenopathy is noted. There is evidence for atelectatic changes in left base. Mild pleural thickening is noted bilaterally. There is a small right pleural effusion. The visualized the upper abdomen is intact. Bony structures unremarkable for degenerative changes distal thoracic spine. Right renal cyst appreciated. IMPRESSION: Basilar atelectasis with pleural thickening bilaterally. Question of small right pleural effusion.
--- NOTE | 2017-08-14 12:04 | Diagnostic Imaging Report ---
Exam: CT examination abdomen pelvis. HISTORY: Right renal lesion. Total DLP equals 660 CTDI equals 12.3 Findings: Multiple contiguous thin section of the chest were obtained from lower thorax to pubic symphysis without the administration of oral or intravenous contrast material therefore the study is limited. The study demonstrates basilar atelectasis pleural thickening or small right pleural effusion The visualized liver parenchyma is intact. The spleen is normal. Vascular calcification appreciated. Right kidney demonstrates distended proximal right renal pelvis measuring 3.9 cm in transverse diameter. No free fluid is noted. The bowel gas to be some nonspecific. The pancreas is intact. The gallbladder is not seen. 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 Urinary bladder contracted with Garcia catheter. Urinary bladder wall is thickened. Multiple granulomas are noted in the pelvic area. IMPRESSION: Distended the right renal pelvis extending into the proximal ureter without acute obstruction there is no evidence for nephrolithiasis. Atherosclerotic calcification of abdominal aorta Extensive degenerative changes of distal thoracic spine Fecal impaction the rectum. Contracted urinary bladder with a Garcia catheter. Urinary bladder wall is thickened. Clinical correlation recommended.
[2017-08-15] MEDS: Levothyroxine 0.1 Mg Tab PO SCH (06:40)
[2017-08-15] MEDS: Pantoprazole 40 mg EC Tab PO SCH (06:40)
[2017-08-15] MEDS: Ferrous Sulfate 325 MG TAB PO SCH (10:06)
[2017-08-15] MEDS: Lactobacillus Rhamnosus GG 15 Billion CFU CAP.SPRINK PO SCH (10:09)
[2017-08-15] MEDS: Multivitamin Tab PO SCH (10:09)
[2017-08-15] MEDS: Calcium Carb/Vit D 500 mg/200 U Tab PO SCH (10:10)
[2017-08-15] MEDS: Potassium Chloride 10 mEq ER Tab PO SCH (10:10)
[2017-08-15] MEDS: cefTRIAXone 1 GM in Sodium Chloride 0.9% 50 ML IV SCH (10:36)
--- NOTE | 2017-08-15 13:14 | General Progress Note ---
Subjective - Review of Systems Events since last encounter: awake tolerating ,meds well Objective - Results Result Diagrams: 08/13/17 04:55 08/13/17 04:55 Recent Labs: Laboratory Last Values WBC 7.0 Th/cmm (4.8-10.8) 08/13/17 04:55 RBC 3.88 Mil/cmm (3.80-5.20) 08/13/17 04:55 Hgb 11.5 gm/dL (12-16) L 08/13/17 04:55 Hct 34.1 % (41.0-60) L 08/13/17 04:55 MCV 88.0 fl (81-100) 08/13/17 04:55 MCH 29.6 pg (27.0-31.0) 08/13/17 04:55 MCHC Differential 33.6 pg (28.0-36.0) 08/13/17 04:55 RDW 12.9 % (11.5-20.0) 08/13/17 04:55 Plt Count 236 Th/cmm (150-400) 08/13/17 04:55 MPV 6.5 fl 08/13/17 04:55 Neutrophils % 67.6 % (40.0-80.0) 08/13/17 04:55 Lymphocytes % 18.5 % (20.0-50.0) L 08/13/17 04:55 Monocytes % 9.3 % (2.0-10.0) 08/13/17 04:55 Eosinophils % 4.5 % (0.0-5.0) 08/13/17 04:55 Basophils % 0.1 % (0.0-2.0) 08/13/17 04:55 Sodium 135 mEq/L (136-145) L 08/13/17 04:55 Potassium 3.6 mEq/L (3.5-5.1) 08/13/17 04:55 Chloride 104 mEq/L (98-107) 08/13/17 04:55 Carbon Dioxide 24.4 mEq/L (21.0-31.0) 08/13/17 04:55 Anion Gap 10.2 (7.0-16.0) 08/13/17 04:55 BUN 16 mg/dL (7-25) 08/13/17 04:55 Creatinine 0.9 mg/dL (0.6-1.2) 08/13/17 04:55 Est GFR ( Amer) TNP 08/13/17 04:55 Est GFR (Non-Af Amer) TNP 08/13/17 04:55 BUN/Creatinine Ratio 17.8 08/13/17 04:55 Glucose 117 mg/dL (70-105) H 08/13/17 04:55 Whole Bld Lactic Acid 0.87 mmol/L (0.60-1.99) 08/12/17 17:25 Calcium 8.5 mg/dL (8.6-10.3) L 08/13/17 04:55 Total Bilirubin 0.4 mg/dL (0.3-1.0) 08/12/17 17:25 AST 15 U/L (13-39) 08/12/17 17:25 ALT 13 U/L (7-52) 08/12/17 17:25 Alkaline Phosphatase 71 U/L (34-104) 08/12/17 17:25 Total Protein 6.4 gm/dL (6.0-8.3) 08/12/17 17:25 Albumin 3.4 gm/dL (3.7-5.3) L 08/12/17 17:25 Globulin 3.0 gm/dL 08/12/17 17:25 Albumin/Globulin Ratio 1.1 (1.0-1.8) 08/12/17 17:25 Triglycerides 131 mg/dL (<150) 08/13/17 04:55 Cholesterol 138 mg/dL (<200) 08/13/17 04:55 LDL Cholesterol Direct 83 mg/dL (75-193) 08/13/17 04:55 HDL Cholesterol 28 mg/dL (23-92) 08/13/17 04:55 TSH 3.47 uIU/ml (0.34-5.60) 08/13/17 04:55 Urine Source CLEAN C 08/12/17 17:30 Urine Color BROWN 08/12/17 17:30 Urine Clarity CLOUDY (CLEAR) H 08/12/17 17:30 Urine pH 5.0 (4.6 - 8.0) 08/12/17 17:30 Ur Specific [place] 1.005 (1.005-1.030) 08/12/17 17:30 Urine Protein 100 mg/dL (NEGATIVE) H 08/12/17 17:30 Urine Glucose (UA) NEGATIVE mg/dL (NEGATIVE) 08/12/17 17:30 Urine Ketones NEGATIVE mg/dL (NEGATIVE) 08/12/17 17:30 Urine Blood SMALL (NEGATIVE) H 08/12/17 17:30 Urine Nitrate NEGATIVE (NEGATIVE) 08/12/17 17:30 Urine Bilirubin SMALL (NEGATIVE) H 08/12/17 17:30 Urine Urobilinogen 0.2 E.U./dL (0.2 - 1.0) 08/12/17 17:30 Ur Leukocyte Esterase LARGE (NEGATIVE) H 08/12/17 17:30 Urine RBC 5-10 /hpf (0-5) H 08/12/17 17:30 Urine WBC >100 /hpf (0-5) H 08/12/17 17:30 Ur Epithelial Cells FEW /lpf (FEW) 08/12/17 17:30 Urine Bacteria MANY /hpf (NONE SEEN) H 08/12/17 17:30 - Physical Exam Vitals and I&O: Vital Signs Temp 97.6 F 08/15/17 11:56 Pulse 19 08/15/17 11:56 Resp 76 08/15/17 11:56 BP 149/63 08/15/17 11:56 Pulse Ox 98 08/15/17 11:56 Intake & Output 08/14/17 08/15/17 08/15/17 18:59 06:59 18:59 Intake Total 1550 100 Output Total 850 1352 Balance 700 -1252 Weight (lbs) 68.039 kg 68.492 kg Intake: Intake, IV Amount 1100 D5-0.45NS 1,000 ml @ 75 1000 mls/hr IV .[id number] [facility] Rx #:[id number] Piperacillin Sodium/ 100 Tazobact 2.25 gm In Sodium Chloride 0.9% 50 ml @ 100 mls/hr IV Q6HR [facility] Rx#:[id number] Oral 450 100 Output: Urine 850 1350 Stool 2 Other: # Bowel Movements 1 Weight Source Bedscale Bedscale Active Medications: Current Medications Calcium/Vitamin D (Oscal W/Vitamin D) 1 tab PO DAILY [facility] Stop: 10/12/17 08:59 Last Admin: 08/15/17 10:10 Dose: 1 tab Estrogens Conjugated (Premarin) 0.625 mg PO DAILY [facility]; Protocol Stop: 10/14/17 08:59 Last Admin: 08/15/17 10:05 Dose: 0.625 mg Ferrous Sulfate (Iron) 325 mg PO DAILY [facility] Stop: 10/12/17 08:59 Last Admin: 08/15/17 10:06 Dose: 325 mg Gabapentin (Neurontin) 300 mg PO DAILY [facility] Stop: 10/12/17 08:59 Last Admin: 08/15/17 10:09 Dose: 300 mg Heparin Sodium (Porcine) (Heparin) 5,000 units SUBQ Q12HR [facility] Stop: 10/12/17 20:59 Last Admin: 08/15/17 10:08 Dose: 5,000 units Hydrochlorothiazide (Hctz) 25 mg PO DAILY [facility] Stop: 10/12/17 08:59 Last Admin: 08/15/17 10:09 Dose: 25 mg Dextrose/Sodium Chloride (D5-0.45ns) 1,000 mls @ 75 mls/hr IV .[id number] [facility] Stop: 10/11/17 20:14 Last Admin: 08/14/17 23:48 Dose: 75 mls/hr Ceftriaxone Sodium 1 gm/ (Sodium Chloride) 50 mls @ 100 mls/hr IV Q24HR [facility] Stop: 10/14/17 09:59 Last Admin: 08/15/17 10:36 Dose: 100 mls/hr Lactobacillus Rhamnosus (Culturelle 15b) 1 each PO DAILY [facility] Stop: 10/13/17 08:59 Last Admin: 08/15/17 10:09 Dose: 1 each Latanoprost (Xalatan 0.005% [facility]) 1 drop EACH EYE HS [facility] Stop: 10/13/17 20:59 Last Admin: 08/14/17 21:34 Dose: 1 drop Levothyroxine Sodium (Synthroid) 0.1 mg PO QDAC [facility] Stop: 10/12/17 07:29 Last Admin: 08/15/17 06:40 Dose: 0.1 mg Losartan Potassium (Cozaar) 50 mg PO BID [facility] Stop: 10/12/17 08:59 Last Admin: 08/15/17 10:10 Dose: 50 mg Metoprolol Tartrate (Lopressor) 50 mg PO DAILY [facility] Stop: 10/12/17 08:59 Last Admin: 08/15/17 10:09 Dose: 50 mg Miscellaneous (Cyclosporine [Restasis]) 0.05 unit OP DAILY [facility] Stop: 10/12/17 08:59 Miscellaneous (Vte Chemical Prophylaxis Screen/ Admission) 1 ea [facility] PRN PRN PRN Reason: PROTOCOL Stop: 10/12/17 09:59 Miscellaneous (Probiotic Screen) 1 ea MC PRN PRN PRN Reason: PROTOCOL Stop: 10/13/17 08:14 Multivitamins/Vitamin C (Theragran) 1 tab PO DAILY [facility] Stop: 10/12/17 08:59 Last Admin: 08/15/17 10:09 Dose: 1 tab Ondansetron HCl (Zofran) 4 mg IV Q6H PRN PRN Reason: Nausea / Vomiting Stop: 10/14/17 09:51 Pantoprazole Sodium (Protonix) 40 mg PO DAILY@0700 [facility] Stop: 10/12/17 06:59 Last Admin: 08/15/17 06:40 Dose: 40 mg Potassium Chloride (Klor-Con) 10 meq PO DAILY [facility] Stop: 10/12/17 08:59 Last Admin: 08/15/17 10:10 Dose: 10 meq Prednisone (Deltasone) 10 mg PO DAILY [facility] Stop: 10/12/17 08:59 Last Admin: 08/15/17 10:10 Dose: 10 mg Sertraline HCl (Zoloft) 100 mg PO BID [facility] Stop: 10/12/17 08:59 Last Admin: 08/15/17 10:08 Dose: 100 mg
[2017-08-15] MEDS: D5-0.45NS 1,000 ML IV SCH ×2 (15:37→19:30)
[2017-08-15] MEDS: Albuterol Nebulizer 2.5mg/3mL HHN SCH (23:35)
--- NOTE | 2017-08-15 23:53 | Infectious Disease Prog Note ---
Infectious Disease Subjective - Review of Systems Service Date: 08/15/17 Subjective: No fever. mentation improved. Infectious Disease Objective - Results Result Diagrams: 08/13/17 04:55 08/13/17 04:55 Recent Labs: Laboratory Last Values WBC 7.0 Th/cmm (4.8-10.8) 08/13/17 04:55 RBC 3.88 Mil/cmm (3.80-5.20) 08/13/17 04:55 Hgb 11.5 gm/dL (12-16) L 08/13/17 04:55 Hct 34.1 % (41.0-60) L 08/13/17 04:55 MCV 88.0 fl (81-100) 08/13/17 04:55 MCH 29.6 pg (27.0-31.0) 08/13/17 04:55 MCHC Differential 33.6 pg (28.0-36.0) 08/13/17 04:55 RDW 12.9 % (11.5-20.0) 08/13/17 04:55 Plt Count 236 Th/cmm (150-400) 08/13/17 04:55 MPV 6.5 fl 08/13/17 04:55 Neutrophils % 67.6 % (40.0-80.0) 08/13/17 04:55 Lymphocytes % 18.5 % (20.0-50.0) L 08/13/17 04:55 Monocytes % 9.3 % (2.0-10.0) 08/13/17 04:55 Eosinophils % 4.5 % (0.0-5.0) 08/13/17 04:55 Basophils % 0.1 % (0.0-2.0) 08/13/17 04:55 Sodium 135 mEq/L (136-145) L 08/13/17 04:55 Potassium 3.6 mEq/L (3.5-5.1) 08/13/17 04:55 Chloride 104 mEq/L (98-107) 08/13/17 04:55 Carbon Dioxide 24.4 mEq/L (21.0-31.0) 08/13/17 04:55 Anion Gap 10.2 (7.0-16.0) 08/13/17 04:55 BUN 16 mg/dL (7-25) 08/13/17 04:55 Creatinine 0.9 mg/dL (0.6-1.2) 08/13/17 04:55 Est GFR ( Amer) TNP 08/13/17 04:55 Est GFR (Non-Af Amer) TNP 08/13/17 04:55 BUN/Creatinine Ratio 17.8 08/13/17 04:55 Glucose 117 mg/dL (70-105) H 08/13/17 04:55 Whole Bld Lactic Acid 0.87 mmol/L (0.60-1.99) 08/12/17 17:25 Calcium 8.5 mg/dL (8.6-10.3) L 08/13/17 04:55 Total Bilirubin 0.4 mg/dL (0.3-1.0) 08/12/17 17:25 AST 15 U/L (13-39) 08/12/17 17:25 ALT 13 U/L (7-52) 08/12/17 17:25 Alkaline Phosphatase 71 U/L (34-104) 08/12/17 17:25 Total Protein 6.4 gm/dL (6.0-8.3) 08/12/17 17:25 Albumin 3.4 gm/dL (3.7-5.3) L 08/12/17 17:25 Globulin 3.0 gm/dL 08/12/17 17:25 Albumin/Globulin Ratio 1.1 (1.0-1.8) 08/12/17 17:25 Triglycerides 131 mg/dL (<150) 08/13/17 04:55 Cholesterol 138 mg/dL (<200) 08/13/17 04:55 LDL Cholesterol Direct 83 mg/dL (75-193) 08/13/17 04:55 HDL Cholesterol 28 mg/dL (23-92) 08/13/17 04:55 TSH 3.47 uIU/ml (0.34-5.60) 08/13/17 04:55 Urine Source CLEAN C 08/12/17 17:30 Urine Color BROWN 08/12/17 17:30 Urine Clarity CLOUDY (CLEAR) H 08/12/17 17:30 Urine pH 5.0 (4.6 - 8.0) 08/12/17 17:30 Ur Specific [place] 1.005 (1.005-1.030) 08/12/17 17:30 Urine Protein 100 mg/dL (NEGATIVE) H 08/12/17 17:30 Urine Glucose (UA) NEGATIVE mg/dL (NEGATIVE) 08/12/17 17:30 Urine Ketones NEGATIVE mg/dL (NEGATIVE) 08/12/17 17:30 Urine Blood SMALL (NEGATIVE) H 08/12/17 17:30 Urine Nitrate NEGATIVE (NEGATIVE) 08/12/17 17:30 Urine Bilirubin SMALL (NEGATIVE) H 08/12/17 17:30 Urine Urobilinogen 0.2 E.U./dL (0.2 - 1.0) 08/12/17 17:30 Ur Leukocyte Esterase LARGE (NEGATIVE) H 08/12/17 17:30 Urine RBC 5-10 /hpf (0-5) H 08/12/17 17:30 Urine WBC >100 /hpf (0-5) H 08/12/17 17:30 Ur Epithelial Cells FEW /lpf (FEW) 08/12/17 17:30 Urine Bacteria MANY /hpf (NONE SEEN) H 08/12/17 17:30 - Physical Exam Vitals and I&O: Vital Signs Temp 97.7 F 08/15/17 16:16 Pulse 75 08/15/17 23:35 Resp 16 08/15/17 23:38 BP 150/56 08/15/17 17:25 Pulse Ox 94 08/15/17 23:35 Intake & Output 08/15/17 08/15/17 08/16/17 06:59 18:59 06:59 Intake Total 100 1000 600 Output Total 1352 1600 Balance -1252 1000 -1000 Weight (lbs) 68.492 kg 68.492 kg Intake: Intake, IV Amount 1000 D5-0.45NS 1,000 ml @ 75 1000 mls/hr IV .[id number] [facility] Rx #:[id number] Oral 100 600 Output: Urine 1350 1600 Stool 2 Other: Weight Source Bedscale Bedscale Active Medications: Current Medications Albuterol Sulfate (Albuterol 2.5mg/3ml Neb Ud) 2.5 mg HHN Q8HRT [facility] Stop: 10/14/17 22:59 Last Admin: 08/15/17 23:35 Dose: 2.5 mg Calcium/Vitamin D (Oscal W/Vitamin D) 1 tab PO DAILY [facility] Stop: 10/12/17 08:59 Last Admin: 08/15/17 10:10 Dose: 1 tab Estrogens Conjugated (Premarin) 0.625 mg PO DAILY [facility]; Protocol Stop: 10/14/17 08:59 Last Admin: 08/15/17 10:05 Dose: 0.625 mg Ferrous Sulfate (Iron) 325 mg PO DAILY [facility] Stop: 10/12/17 08:59 Last Admin: 08/15/17 10:06 Dose: 325 mg Gabapentin (Neurontin) 300 mg PO DAILY [facility] Stop: 10/12/17 08:59 Last Admin: 08/15/17 10:09 Dose: 300 mg Heparin Sodium (Porcine) (Heparin) 5,000 units SUBQ Q12HR [facility] Stop: 10/12/17 20:59 Last Admin: 08/15/17 20:40 Dose: 5,000 units Hydrochlorothiazide (Hctz) 25 mg PO DAILY [facility] Stop: 10/12/17 08:59 Last Admin: 08/15/17 10:09 Dose: 25 mg Ceftriaxone Sodium 1 gm/ (Sodium Chloride) 50 mls @ 100 mls/hr IV Q24HR [facility] Stop: 10/14/17 09:59 Last Admin: 08/15/17 10:36 Dose: 100 mls/hr Dextrose/Sodium Chloride (D5-0.45ns) 1,000 mls @ 30 mls/hr IV .Q24H [facility] Stop: 10/14/17 19:59 Last Admin: 08/15/17 19:30 Dose: 30 mls/hr Lactobacillus Rhamnosus (Culturelle 15b) 1 each PO DAILY [facility] Stop: 10/13/17 08:59 Last Admin: 08/15/17 10:09 Dose: 1 each Latanoprost (Xalatan 0.005% Oph Soln) 1 drop EACH EYE HS RAFAEL Stop: 10/13/17 20:59 Last Admin: 08/15/17 20:40 Dose: 1 drop Levothyroxine Sodium (Synthroid) 0.1 mg PO QDAC RAFAEL Stop: 10/12/17 07:29 Last Admin: 08/15/17 06:40 Dose: 0.1 mg Losartan Potassium (Cozaar) 50 mg PO BID RAFAEL Stop: 10/12/17 08:59 Last Admin: 08/15/17 17:25 Dose: 50 mg Metoprolol Tartrate (Lopressor) 50 mg PO DAILY [facility] Stop: 10/12/17 08:59 Last Admin: 08/15/17 10:09 Dose: 50 mg Miscellaneous (Cyclosporine [Restasis]) 0.05 unit OP DAILY RAFAEL Stop: 10/12/17 08:59 Miscellaneous (Vte Chemical Prophylaxis Screen/ Admission) 1 ea PRN PRN PRN Reason: PROTOCOL Stop: 10/12/17 09:59 Miscellaneous (Probiotic Screen) 1 ea PRN PRN PRN Reason: PROTOCOL Stop: 10/13/17 08:14 Multivitamins/Vitamin C (Theragran) 1 tab PO DAILY RAFAEL Stop: 10/12/17 08:59 Last Admin: 08/15/17 10:09 Dose: 1 tab Ondansetron HCl (Zofran) 4 mg IV Q6H PRN PRN Reason: Nausea / Vomiting Stop: 10/14/17 09:51 Pantoprazole Sodium (Protonix) 40 mg PO DAILY@0700 RAFAEL Stop: 10/12/17 06:59 Last Admin: 08/15/17 06:40 Dose: 40 mg Potassium Chloride (Klor-Con) 10 meq PO DAILY RAFAEL Stop: 10/12/17 08:59 Last Admin: 08/15/17 10:10 Dose: 10 meq Prednisone (Deltasone) 10 mg PO DAILY RAFAEL Stop: 10/12/17 08:59 Last Admin: 08/15/17 10:10 Dose: 10 mg Sertraline HCl (Zoloft) 100 mg PO BID RAFAEL Stop: 10/12/17 08:59 Last Admin: 08/15/17 20:07 Dose: 100 mg General: no acute distress, well developed, well nourished HEENT: atraumatic, normocephalic, PERRLA, EOMI, moist mucous membrane Neck: supple, no thyromegaly Cardiovascular: S1S2, regular Lungs: clear to auscultation bilaterally, clear to percussion Abdomen: soft, no tender, no distended, no mass Extremities: no cyanosis, no clubbing, no edema Neurological: awake, alert Skin: intact Infectious Disease Assmt/Plan - Assessment Assessment: 1. UTI. 2. HTN. 3. OBESITY. 4. Hypothyroidism. - Plan Plan: Continue Rocephin. F/u culture report. renal u/s.
[2017-08-16] MEDS: Pantoprazole 40 mg EC Tab PO SCH (06:41)
[2017-08-16] MEDS: Levothyroxine 0.1 Mg Tab PO SCH (06:41)
[2017-08-16] MEDS: Albuterol Nebulizer 2.5mg/3mL HHN SCH ×3 (07:03→23:47)
[2017-08-16] MEDS: Ferrous Sulfate 325 MG TAB PO SCH (10:06)
[2017-08-16] MEDS: Lactobacillus Rhamnosus GG 15 Billion CFU CAP.SPRINK PO SCH (10:08)
[2017-08-16] MEDS: Calcium Carb/Vit D 500 mg/200 U Tab PO SCH (10:08)
[2017-08-16] MEDS: Multivitamin Tab PO SCH (10:09)
[2017-08-16] MEDS: Potassium Chloride 10 mEq ER Tab PO SCH (10:09)
[2017-08-16] MEDS: cefTRIAXone 1 GM in Sodium Chloride 0.9% 50 ML IV SCH (10:23)
--- NOTE | 2017-08-16 13:02 | Infectious Disease Prog Note ---
Infectious Disease Subjective - Review of Systems Service Date: 08/16/17 Subjective: No fever. mentation improved. Infectious Disease Objective - Results Result Diagrams: 08/13/17 04:55 08/13/17 04:55 Recent Labs: Laboratory Last Values WBC 7.0 Th/cmm (4.8-10.8) 08/13/17 04:55 RBC 3.88 Mil/cmm (3.80-5.20) 08/13/17 04:55 Hgb 11.5 gm/dL (12-16) L 08/13/17 04:55 Hct 34.1 % (41.0-60) L 08/13/17 04:55 MCV 88.0 fl (81-100) 08/13/17 04:55 MCH 29.6 pg (27.0-31.0) 08/13/17 04:55 MCHC Differential 33.6 pg (28.0-36.0) 08/13/17 04:55 RDW 12.9 % (11.5-20.0) 08/13/17 04:55 Plt Count 236 Th/cmm (150-400) 08/13/17 04:55 MPV 6.5 fl 08/13/17 04:55 Neutrophils % 67.6 % (40.0-80.0) 08/13/17 04:55 Lymphocytes % 18.5 % (20.0-50.0) L 08/13/17 04:55 Monocytes % 9.3 % (2.0-10.0) 08/13/17 04:55 Eosinophils % 4.5 % (0.0-5.0) 08/13/17 04:55 Basophils % 0.1 % (0.0-2.0) 08/13/17 04:55 Sodium 135 mEq/L (136-145) L 08/13/17 04:55 Potassium 3.6 mEq/L (3.5-5.1) 08/13/17 04:55 Chloride 104 mEq/L (98-107) 08/13/17 04:55 Carbon Dioxide 24.4 mEq/L (21.0-31.0) 08/13/17 04:55 Anion Gap 10.2 (7.0-16.0) 08/13/17 04:55 BUN 16 mg/dL (7-25) 08/13/17 04:55 Creatinine 0.9 mg/dL (0.6-1.2) 08/13/17 04:55 Est GFR ( Amer) TNP 08/13/17 04:55 Est GFR (Non-Af Amer) TNP 08/13/17 04:55 BUN/Creatinine Ratio 17.8 08/13/17 04:55 Glucose 117 mg/dL (70-105) H 08/13/17 04:55 Whole Bld Lactic Acid 0.87 mmol/L (0.60-1.99) 08/12/17 17:25 Calcium 8.5 mg/dL (8.6-10.3) L 08/13/17 04:55 Total Bilirubin 0.4 mg/dL (0.3-1.0) 08/12/17 17:25 AST 15 U/L (13-39) 08/12/17 17:25 ALT 13 U/L (7-52) 08/12/17 17:25 Alkaline Phosphatase 71 U/L (34-104) 08/12/17 17:25 Total Protein 6.4 gm/dL (6.0-8.3) 08/12/17 17:25 Albumin 3.4 gm/dL (3.7-5.3) L 08/12/17 17:25 Globulin 3.0 gm/dL 08/12/17 17:25 Albumin/Globulin Ratio 1.1 (1.0-1.8) 08/12/17 17:25 Triglycerides 131 mg/dL (<150) 08/13/17 04:55 Cholesterol 138 mg/dL (<200) 08/13/17 04:55 LDL Cholesterol Direct 83 mg/dL (75-193) 08/13/17 04:55 HDL Cholesterol 28 mg/dL (23-92) 08/13/17 04:55 TSH 3.47 uIU/ml (0.34-5.60) 08/13/17 04:55 Urine Source CLEAN C 08/12/17 17:30 Urine Color BROWN 08/12/17 17:30 Urine Clarity CLOUDY (CLEAR) H 08/12/17 17:30 Urine pH 5.0 (4.6 - 8.0) 08/12/17 17:30 Ur Specific [place] 1.005 (1.005-1.030) 08/12/17 17:30 Urine Protein 100 mg/dL (NEGATIVE) H 08/12/17 17:30 Urine Glucose (UA) NEGATIVE mg/dL (NEGATIVE) 08/12/17 17:30 Urine Ketones NEGATIVE mg/dL (NEGATIVE) 08/12/17 17:30 Urine Blood SMALL (NEGATIVE) H 08/12/17 17:30 Urine Nitrate NEGATIVE (NEGATIVE) 08/12/17 17:30 Urine Bilirubin SMALL (NEGATIVE) H 08/12/17 17:30 Urine Urobilinogen 0.2 E.U./dL (0.2 - 1.0) 08/12/17 17:30 Ur Leukocyte Esterase LARGE (NEGATIVE) H 08/12/17 17:30 Urine RBC 5-10 /hpf (0-5) H 08/12/17 17:30 Urine WBC >100 /hpf (0-5) H 08/12/17 17:30 Ur Epithelial Cells FEW /lpf (FEW) 08/12/17 17:30 Urine Bacteria MANY /hpf (NONE SEEN) H 08/12/17 17:30 - Physical Exam Vitals and I&O: Vital Signs Temp 97.2 F 08/16/17 12:31 Pulse 97 08/16/17 12:31 Resp 17 08/16/17 12:31 BP 140/50 08/16/17 12:31 Pulse Ox 95 08/16/17 12:31 Intake & Output 08/15/17 08/16/17 08/16/17 18:59 06:59 18:59 Intake Total 1050 600 100 Output Total 1600 952 Balance 1050 -1000 -852 Weight (lbs) 69.853 kg 69.853 kg Intake: Intake, IV Amount 1050 D5-0.45NS 1,000 ml @ 75 1000 mls/hr IV .[id number] [facility] Rx #:[id number] cefTRIAXone 1 gm In 50 Sodium Chloride 0.9% 50 ml @ 100 mls/hr IV Q24HR [facility] Rx#:[id number] Oral 600 100 Output: Urine 1600 950 Stool 2 Other: # Bowel Movements 5 Weight Source Bedscale Bedscale Active Medications: Current Medications Albuterol Sulfate (Albuterol 2.5mg/3ml Neb Ud) 2.5 mg HHN Q8HRT [facility] Stop: 10/14/17 22:59 Last Admin: 08/16/17 07:03 Dose: 2.5 mg Calcium/Vitamin D (Oscal W/Vitamin D) 1 tab PO DAILY [facility] Stop: 10/12/17 08:59 Last Admin: 08/16/17 10:08 Dose: 1 tab Estrogens Conjugated (Premarin) 0.625 mg PO DAILY [facility]; Protocol Stop: 10/14/17 08:59 Last Admin: 08/16/17 10:19 Dose: 0.625 mg Ferrous Sulfate (Iron) 325 mg PO DAILY [facility] Stop: 10/12/17 08:59 Last Admin: 08/16/17 10:06 Dose: 325 mg Gabapentin (Neurontin) 300 mg PO DAILY [facility] Stop: 10/12/17 08:59 Last Admin: 08/16/17 10:06 Dose: 300 mg Heparin Sodium (Porcine) (Heparin) 5,000 units SUBQ Q12HR [facility] Stop: 10/12/17 20:59 Last Admin: 08/16/17 10:06 Dose: 5,000 units Hydrochlorothiazide (Hctz) 25 mg PO DAILY [facility] Stop: 10/12/17 08:59 Last Admin: 08/16/17 10:08 Dose: 25 mg Ceftriaxone Sodium 1 gm/ (Sodium Chloride) 50 mls @ 100 mls/hr IV Q24HR [facility] Stop: 10/14/17 09:59 Last Admin: 08/16/17 10:23 Dose: 100 mls/hr Dextrose/Sodium Chloride (D5-0.45ns) 1,000 mls @ 30 mls/hr IV .Q24H [facility] Stop: 10/14/17 19:59 Last Admin: 08/15/17 19:30 Dose: 30 mls/hr Lactobacillus Rhamnosus (Culturelle 15b) 1 each PO DAILY [facility] Stop: 10/13/17 08:59 Last Admin: 08/16/17 10:08 Dose: 1 each Latanoprost (Xalatan 0.005% Ophth Soln) 1 drop EACH EYE HS [facility] Stop: 10/13/17 20:59 Last Admin: 08/15/17 20:40 Dose: 1 drop Levothyroxine Sodium (Synthroid) 0.1 mg PO QDAC [facility] Stop: 10/12/17 07:29 Last Admin: 08/16/17 06:41 Dose: 0.1 mg Losartan Potassium (Cozaar) 50 mg PO BID [facility] Stop: 10/12/17 08:59 Last Admin: 08/16/17 10:07 Dose: 50 mg Metoprolol Tartrate (Lopressor) 50 mg PO DAILY [facility] Stop: 10/12/17 08:59 Last Admin: 08/16/17 10:07 Dose: 50 mg Miscellaneous (Vte Chemical Prophylaxis Screen/ Admission) 1 ea PRN PRN PRN Reason: PROTOCOL Stop: 10/12/17 09:59 Miscellaneous (Probiotic Screen) 1 ea PRN PRN PRN Reason: PROTOCOL Stop: 10/13/17 08:14 Multivitamins/Vitamin C (Theragran) 1 tab PO DAILY [facility] Stop: 10/12/17 08:59 Last Admin: 08/16/17 10:09 Dose: 1 tab Ondansetron HCl (Zofran) 4 mg IV Q6H PRN PRN Reason: Nausea / Vomiting Stop: 10/14/17 09:51 Pantoprazole Sodium (Protonix) 40 mg PO DAILY@0700 [facility] Stop: 10/12/17 06:59 Last Admin: 08/16/17 06:41 Dose: 40 mg Potassium Chloride (Klor-Con) 10 meq PO DAILY [facility] Stop: 10/12/17 08:59 Last Admin: 08/16/17 10:09 Dose: 10 meq Prednisone (Deltasone) 10 mg PO DAILY [facility] Stop: 10/12/17 08:59 Last Admin: 08/16/17 10:08 Dose: 10 mg Sertraline HCl (Zoloft) 100 mg PO BID [facility] Stop: 10/12/17 08:59 Last Admin: 08/16/17 10:08 Dose: 100 mg General: no acute distress, well developed, well nourished HEENT: atraumatic, normocephalic, PERRLA, EOMI Neck: supple, no thyromegaly Cardiovascular: S1S2, regular Lungs: clear to auscultation bilaterally, clear to percussion Abdomen: soft, no tender, no distended Extremities: no cyanosis, no clubbing, no edema Neurological: awake, alert, oriented Skin: intact Infectious Disease Assmt/Plan - Assessment Assessment: 1. UTI. 2. HTN. 3. OBESITY. 4. Hypothyroidism. - Plan Plan: Continue Rocephin.
--- NOTE | 2017-08-16 16:23 | General Progress Note ---
Subjective - Review of Systems Subjective: pt. awake, alert, no fever Objective - Results Result Diagrams: 08/13/17 04:55 08/13/17 04:55 Recent Labs: Laboratory Last Values WBC 7.0 Th/cmm (4.8-10.8) 08/13/17 04:55 RBC 3.88 Mil/cmm (3.80-5.20) 08/13/17 04:55 Hgb 11.5 gm/dL (12-16) L 08/13/17 04:55 Hct 34.1 % (41.0-60) L 08/13/17 04:55 MCV 88.0 fl (81-100) 08/13/17 04:55 MCH 29.6 pg (27.0-31.0) 08/13/17 04:55 MCHC Differential 33.6 pg (28.0-36.0) 08/13/17 04:55 RDW 12.9 % (11.5-20.0) 08/13/17 04:55 Plt Count 236 Th/cmm (150-400) 08/13/17 04:55 MPV 6.5 fl 08/13/17 04:55 Neutrophils % 67.6 % (40.0-80.0) 08/13/17 04:55 Lymphocytes % 18.5 % (20.0-50.0) L 08/13/17 04:55 Monocytes % 9.3 % (2.0-10.0) 08/13/17 04:55 Eosinophils % 4.5 % (0.0-5.0) 08/13/17 04:55 Basophils % 0.1 % (0.0-2.0) 08/13/17 04:55 Sodium 135 mEq/L (136-145) L 08/13/17 04:55 Potassium 3.6 mEq/L (3.5-5.1) 08/13/17 04:55 Chloride 104 mEq/L (98-107) 08/13/17 04:55 Carbon Dioxide 24.4 mEq/L (21.0-31.0) 08/13/17 04:55 Anion Gap 10.2 (7.0-16.0) 08/13/17 04:55 BUN 16 mg/dL (7-25) 08/13/17 04:55 Creatinine 0.9 mg/dL (0.6-1.2) 08/13/17 04:55 Est GFR ( Amer) TNP 08/13/17 04:55 Est GFR (Non-Af Amer) TNP 08/13/17 04:55 BUN/Creatinine Ratio 17.8 08/13/17 04:55 Glucose 117 mg/dL (70-105) H 08/13/17 04:55 Whole Bld Lactic Acid 0.87 mmol/L (0.60-1.99) 08/12/17 17:25 Calcium 8.5 mg/dL (8.6-10.3) L 08/13/17 04:55 Total Bilirubin 0.4 mg/dL (0.3-1.0) 08/12/17 17:25 AST 15 U/L (13-39) 08/12/17 17:25 ALT 13 U/L (7-52) 08/12/17 17:25 Alkaline Phosphatase 71 U/L (34-104) 08/12/17 17:25 Total Protein 6.4 gm/dL (6.0-8.3) 08/12/17 17:25 Albumin 3.4 gm/dL (3.7-5.3) L 08/12/17 17:25 Globulin 3.0 gm/dL 08/12/17 17:25 Albumin/Globulin Ratio 1.1 (1.0-1.8) 08/12/17 17:25 Triglycerides 131 mg/dL (<150) 08/13/17 04:55 Cholesterol 138 mg/dL (<200) 08/13/17 04:55 LDL Cholesterol Direct 83 mg/dL (75-193) 08/13/17 04:55 HDL Cholesterol 28 mg/dL (23-92) 08/13/17 04:55 TSH 3.47 uIU/ml (0.34-5.60) 08/13/17 04:55 Urine Source CLEAN C 08/12/17 17:30 Urine Color BROWN 08/12/17 17:30 Urine Clarity CLOUDY (CLEAR) H 08/12/17 17:30 Urine pH 5.0 (4.6 - 8.0) 08/12/17 17:30 Ur Specific [place] 1.005 (1.005-1.030) 08/12/17 17:30 Urine Protein 100 mg/dL (NEGATIVE) H 08/12/17 17:30 Urine Glucose (UA) NEGATIVE mg/dL (NEGATIVE) 08/12/17 17:30 Urine Ketones NEGATIVE mg/dL (NEGATIVE) 08/12/17 17:30 Urine Blood SMALL (NEGATIVE) H 08/12/17 17:30 Urine Nitrate NEGATIVE (NEGATIVE) 08/12/17 17:30 Urine Bilirubin SMALL (NEGATIVE) H 08/12/17 17:30 Urine Urobilinogen 0.2 E.U./dL (0.2 - 1.0) 08/12/17 17:30 Ur Leukocyte Esterase LARGE (NEGATIVE) H 08/12/17 17:30 Urine RBC 5-10 /hpf (0-5) H 08/12/17 17:30 Urine WBC >100 /hpf (0-5) H 08/12/17 17:30 Ur Epithelial Cells FEW /lpf (FEW) 08/12/17 17:30 Urine Bacteria MANY /hpf (NONE SEEN) H 08/12/17 17:30 - Physical Exam Vitals and I&O: Vital Signs Temp 97.2 F 08/16/17 12:31 Pulse 76 08/16/17 14:06 Resp 18 08/16/17 14:06 BP 140/50 08/16/17 12:31 Pulse Ox 94 08/16/17 14:06 Intake & Output 08/15/17 08/16/17 08/16/17 18:59 06:59 18:59 Intake Total 1050 600 100 Output Total 1600 952 Balance 1050 -1000 -852 Weight (lbs) 69.853 kg 69.853 kg Intake: Intake, IV Amount 1050 D5-0.45NS 1,000 ml @ 75 1000 mls/hr IV .[id number] [facility] Rx #:[id number] cefTRIAXone 1 gm In 50 Sodium Chloride 0.9% 50 ml @ 100 mls/hr IV Q24HR [facility] Rx#:[id number] Oral 600 100 Output: Urine 1600 950 Stool 2 Other: # Bowel Movements 5 Weight Source Bedscale Bedscale Active Medications: Current Medications Albuterol Sulfate (Albuterol 2.5mg/3ml Neb Ud) 2.5 mg HHN Q8HRT [facility] Stop: 10/14/17 22:59 Last Admin: 08/16/17 14:06 Dose: 2.5 mg Calcium/Vitamin D (Oscal W/Vitamin D) 1 tab PO DAILY [facility] Stop: 10/12/17 08:59 Last Admin: 08/16/17 10:08 Dose: 1 tab Estrogens Conjugated (Premarin) 0.625 mg PO DAILY [facility]; Protocol Stop: 10/14/17 08:59 Last Admin: 08/16/17 10:19 Dose: 0.625 mg Ferrous Sulfate (Iron) 325 mg PO DAILY [facility] Stop: 10/12/17 08:59 Last Admin: 08/16/17 10:06 Dose: 325 mg Gabapentin (Neurontin) 300 mg PO DAILY [facility] Stop: 10/12/17 08:59 Last Admin: 08/16/17 10:06 Dose: 300 mg Heparin Sodium (Porcine) (Heparin) 5,000 units SUBQ Q12HR [facility] Stop: 10/12/17 20:59 Last Admin: 08/16/17 10:06 Dose: 5,000 units Hydrochlorothiazide (Hctz) 25 mg PO DAILY [facility] Stop: 10/12/17 08:59 Last Admin: 08/16/17 10:08 Dose: 25 mg Ceftriaxone Sodium 1 gm/ (Sodium Chloride) 50 mls @ 100 mls/hr IV Q24HR [facility] Stop: 10/14/17 09:59 Last Admin: 08/16/17 10:23 Dose: 100 mls/hr Dextrose/Sodium Chloride (D5-0.45ns) 1,000 mls @ 30 mls/hr IV .Q24H [facility] Stop: 10/14/17 19:59 Last Admin: 08/15/17 19:30 Dose: 30 mls/hr Lactobacillus Rhamnosus (Culturelle 15b) 1 each PO DAILY [facility] Stop: 10/13/17 08:59 Last Admin: 08/16/17 10:08 Dose: 1 each Latanoprost (Xalatan 0.005% Oph Soln) 1 drop EACH EYE HS [facility] Stop: 10/13/17 20:59 Last Admin: 08/15/17 20:40 Dose: 1 drop Levothyroxine Sodium (Synthroid) 0.1 mg PO QDAC [facility] Stop: 10/12/17 07:29 Last Admin: 08/16/17 06:41 Dose: 0.1 mg Losartan Potassium (Cozaar) 50 mg PO BID [facility] Stop: 10/12/17 08:59 Last Admin: 08/16/17 10:07 Dose: 50 mg Metoprolol Tartrate (Lopressor) 50 mg PO DAILY [facility] Stop: 10/12/17 08:59 Last Admin: 08/16/17 10:07 Dose: 50 mg Miscellaneous (Vte Chemical Prophylaxis Screen/ Admission) 1 ea PRN PRN PRN Reason: PROTOCOL Stop: 10/12/17 09:59 Miscellaneous (Probiotic Screen) 1 ea PRN PRN PRN Reason: PROTOCOL Stop: 10/13/17 08:14 Multivitamins/Vitamin C (Theragran) 1 tab PO DAILY [facility] Stop: 10/12/17 08:59 Last Admin: 08/16/17 10:09 Dose: 1 tab Ondansetron HCl (Zofran) 4 mg IV Q6H PRN PRN Reason: Nausea / Vomiting Stop: 10/14/17 09:51 Pantoprazole Sodium (Protonix) 40 mg PO DAILY@0700 [facility] Stop: 10/12/17 06:59 Last Admin: 08/16/17 06:41 Dose: 40 mg Potassium Chloride (Klor-Con) 10 meq PO DAILY [facility] Stop: 10/12/17 08:59 Last Admin: 08/16/17 10:09 Dose: 10 meq Prednisone (Deltasone) 10 mg PO DAILY [facility] Stop: 10/12/17 08:59 Last Admin: 08/16/17 10:08 Dose: 10 mg Sertraline HCl (Zoloft) 100 mg PO BID [facility] Stop: 10/12/17 08:59 Last Admin: 08/16/17 10:08 Dose: 100 mg General: Alert, Oriented x3, No acute distress HEENT: PERRLA, EOMI Neck: Supple Cardiovascular: Normal S1, Normal S2 Lungs: Clear to auscultation Abdomen: Bowel sounds Assessment/Plan - Assessment Assessment: UTI HTN Obesity Hypothyroidism - Plan Plan: Continue current plan of care Continue current meds
--- NOTE | 2017-08-17 01:01 | Consultation ---
DATE OF CONSULTATION: 08/16/2017 NEUROLOGY CONSULT HISTORY OF PRESENT ILLNESS: The patient is 81 years old. The patient in board and care, brought in because of increasing disorientation. The patient not her normal self. The patient was confused. Somewhat more agitated. The patient having more difficulty with ambulation. Physical therapy at the bedside. She says she has difficulty when just standing and needs a lot of help . PAST MEDICAL HISTORY: Arthritis, osteoporosis, fibromyalgia, hypothyroidism, hypertension, obesity. The patient with urinary tract infection. The patient with dementia. MEDICATIONS: As per reconciliation. The patient here on ceftriaxone, gabapentin 300 daily, levothyroxine, losartan, metoprolol, pantoprazole, prednisone, sertraline 100 b.i.d. REVIEW OF SYSTEMS: Twelve point negative except for above. PHYSICAL EXAMINATION: VITAL SIGNS: Temperature 97.4, blood pressure 140/70, pulse 90. NECK: Supple, no bruits. HEART: Sounds S1, S2. LUNGS: Clear. NEUROLOGIC: The patient is awake. She will answer questions. She actually gives me her name. She does not even give me her age. She did not know what day it is. She did not know what month it is. CRANIAL: Pupils react to light. Full eye movement. She is able to name simple objects. MOTOR: She has tremor which is more like an action tremor. Upper extremity, she is able to lift both arms up, but weak. Legs, she really not able to lift them up. The patient has increased tone. REFLEXES: Upper extremity 1. Knees are about -1. Absent ankles. Bilateral Babinski. INVESTIGATIONS: CT scan of the head, white matter changes, chronic, but no acute process. LABORATORY DATA: Sodium 135, calcium 8.5. TSH 3.47. UA positive for wbc's over 100. ASSESSMENT: 1. Encephalopathy. 2. Underlying dementia. 3. The patient with urinary tract infection probably worsening her cognitive impairment. 4. Hypothyroidism. 5. Obesity. 6. The patient examination, weakness in the legs and inability to ambulate with bilateral Babinski. Check MRI cervical spine. Agree with physical therapy. JOB# [id number]
[2017-08-17] MEDS: D5-0.45NS 1,000 ML IV SCH (01:18)
[2017-08-17] MEDS: Pantoprazole 40 mg EC Tab PO SCH (06:43)
[2017-08-17] MEDS: Levothyroxine 0.1 Mg Tab PO SCH (06:44)
[2017-08-17] MEDS: Albuterol Nebulizer 2.5mg/3mL HHN SCH ×2 (07:30→14:01)
[2017-08-17] MEDS: Ferrous Sulfate 325 MG TAB PO SCH (08:15)
[2017-08-17] MEDS: Calcium Carb/Vit D 500 mg/200 U Tab PO SCH (08:15)
[2017-08-17] MEDS: Multivitamin Tab PO SCH (08:15)
[2017-08-17] MEDS: Potassium Chloride 10 mEq ER Tab PO SCH (08:16)
[2017-08-17] MEDS: Lactobacillus Rhamnosus GG 15 Billion CFU CAP.SPRINK PO SCH (08:16)
[2017-08-17] MEDS: cefTRIAXone 1 GM in Sodium Chloride 0.9% 50 ML IV SCH (10:00)
--- NOTE | 2017-08-17 17:16 | Consultation ---
DATE OF CONSULTATION: UROLOGY CONSULTATION REASON FOR CONSULTATION: Seen for UTI and mild hydronephrosis, right side, and sepsis. HISTORY OF PRESENT ILLNESS: The patient is an 81-year-old who was sent to the Emergency Room with an altered level of consciousness and diagnosis of urosepsis. There was some discomfort reported while urinating, namely dysuria. The patient claims she has had an infection like this once before, but not anymore. PAST MEDICAL HISTORY: She is a alf resident, has constipation, dementia, hypothyroidism, fibromyalgia, and osteoporosis. No history of urologic surgeries, specifically no kidney stones or bladder operations. PAST SURGICAL HISTORY: Unremarkable. Denies specifically any GI problems, but did admit to hysterectomy. No joint surgeries or fractures. Denied cardiac surgery as well. HOME MEDICATIONS: Calcium supplement, Premarin tablets, cyclosporine for arthritis, gabapentin, hydrochlorothiazide, lansoprazole, Avapro, Synthroid, metoprolol, prednisone, sertraline. These indicate she also has hypertension and hypothyroidism along with the other medical problems listed earlier. ALLERGIES: None. REVIEW OF SYSTEMS: Altered, but no fever recorded here. There was some history of fever at the alf. No headache or seizures. No chest pain, coughing or shortness of breath. Denies sore throat or hearing loss. No vomiting or diarrhea. No abdominal pain. Denied any hematuria. Had some dysuria. No skin rashes or joint swelling, but chronic osteoarthritis for which she takes cyclosporine and prednisone. PHYSICAL EXAMINATION: GENERAL: She is a frail, elderly, very pleasant woman just came back from physical therapy. VITAL SIGNS: Temperature 96.3, heart rate ____, and blood pressure 149/73. HEAD AND NECK: Normocephalic. Trachea central. Pupils equal and reactive. No jaundice. Thyroid and lymph nodes not palpable. Carotid bruit absent. CHEST: Symmetrical. LUNGS: Clear. No rales or rhonchi. HEART: Sounds normal, in sinus rhythm, no murmur. ABDOMEN: Soft, nontender, no organomegaly, mass, or hernia. Garcia catheter draining clear urine. EXTREMITIES: No edema or lymphadenopathy. NEUROLOGIC: Nonfocal. Moves all 4 limbs. LABORATORY DATA: White count was 8.4 on admission, now 7.4 on the 08/13/2017; hemoglobin 11.5 also on the 08/13/2017; and normal platelets. Sodium was slightly low at 135. Other electrolytes are normal. BUN 16, creatinine 0.9, glucose 117 on the 08/13/2017 and albumin 3.4 on the 08/12/2017. No recent labs. Urine showed large amount of leukocytes, white and red cells and culture grew out 2 bacteria, Klebsiella and E. coli, with sensitivities to the quinolones, cephalosporins, and aminoglycosides. Ultrasound and CT scan showed mild hydronephrosis of the right kidney and half of the proximal ureter without any stones. Ultrasound confirmed the same. Bladder was thickened on the ultrasound as well indicating possibly outflow obstruction. IMPRESSION: 1. Urinary tract infection, probably urosepsis, not very well documented in the absence of fever and white count, but she does take immunosuppression, which can be masking the symptoms. Recommend continue Garcia catheter drainage with attention to catheter care and irrigation daily with 200 mL of normal saline for local control. Would recommend Garcia on a long-term basis at the alf as she probably has a high residual volume due to her multiple problems and sedentary lifestyle and constipation. The catheter can be changed every 3 weeks and irrigated every 2 days with 200 mL of normal saline to prevent recurrent urinary tract infections. 2. Hypertension. 3. Hypothyroidism. 4. Fibromyalgia. 5. Chronic arthritis. 6. Dementia, which seems to be very mild. Thank you for the referral. JOB# [id number]
--- NOTE | 2017-08-18 02:29 | Progress Notes ---
DATE: 08/17/2017 SUBJECTIVE: The patient is in bed, still confused, but interacting little bit more. Still very weak in the legs with increased tone. MRI cervical spine pending. OBJECTIVE: VITAL SIGNS: Temperature 98.2, blood pressure 136/74, pulse rate 86. NECK: Supple. GENERAL: The patient is awake. Gives me her name, but nothing else. Follows simple instruction. EXTREMITIES: Upper extremities, she has a tremor which is action tremor. Lower extremity, difficult to lift both of them. Increased tone. Bilateral Babinski. INVESTIGATIONS: CT scan of head negative. CPK normal. MRI cervical spine pending. ASSESSMENT: 1. Encephalopathy. 2. Underlying dementia. 3. Urinary tract infection. 4. Hypothyroidism. 5. The patient with weakness in the legs, rule out spinal stenosis. JOB# [id number]
[2017-08-18 12:14] LABS: FOLIC ACID 12.3 ng/mL (>3.0)
== END 2017-08-17 19:00 | disposition home or self-care (01) | DRG 871 ==
LOC: ER 16:44 → MSI 19:30 → TELE 20:52
PROVIDERS: ADMIT Internal Medicine; ATTEND Internal Medicine
DX: A41.9 Sepsis, unspecified organism (principal); G93.41 Metabolic encephalopathy; N39.0 Urinary tract infection, site not specified; E87.1 Hypo-osmolality and hyponatremia; I10 Essential (primary) hypertension; E03.9 Hypothyroidism, unspecified; E66.9 Obesity, unspecified; M79.7 Fibromyalgia; M81.0 Age-related osteoporosis without current pathological fracture; M19.90 Unspecified osteoarthritis, unspecified site; F03.90 Unspecified dementia, unspecified severity, without behavioral disturbance, psychotic disturbance, mood disturbance, and anxiety; B96.1 Klebsiella pneumoniae [K. pneumoniae] as the cause of diseases classified elsewhere; Z68.26 Body mass index [BMI] 26.0-26.9, adult
CPT/HCPCS: 36415-UA; 70450-TC; 71045-TC; 71250-TC; 76770-TC; 80048-TC; 80053-TC; 80061-TC; 81001-TC; 82085-90; 82550-TC; 82607-90; 82746-90; 83605; 84425-90; 84443-TC; 85025-TC; 85652-TC; 86141-TC; 87086-90; 93005; 94640; 94760; 97530; J0696; J1644; J2543; J7030; J7613; X3904; X7704; Z7610

== ENCOUNTER 2017-09-14 21:40 | Inpatient (IN) | payer MEDICARE ==
[2017-09-14 22:46] LABS: EOSINOPHILE ABSOLUTE 0.4 Th/cmm (0.1-0.4); HEMOGLOBIN 14.8 gm/dL (12-16)
[2017-09-14 22:53] LABS: % EOSINOPHILS 4.5 % (0.0-5.0); HEMATOCRIT 44.4 % (41.0-60); MONOCYTE ABSOLUTE 0.8 Th/cmm (0.3-1.0); PLATELET COUNT 279 Th/cmm (150-400); RED CELL DISTRIBUTION WIDTH 14.4 % (11.5-20.0); WHITE BLOOD COUNT 7.9 Th/cmm (4.8-10.8)
[2017-09-14 22:57] LABS: % BASOPHILS 0.8 % (0.0-2.0); % LYMPHOCYTES 29.7 % (20.0-50.0); BASOPHILE ABSOLUTE 0.1 Th/cumm (0-0.2); LYMPHOCYTE ABSOLUTE 2.3 Th/cmm (1.5-3.0); MEAN CELL VOLUME 88.3 fl (81-100); MEAN CORPUSCULAR HEMOGLOBIN 29.4 pg (27.0-31.0); MEAN CORPUSCULAR HGB CONC 33.3 pg (28.0-36.0); MEAN PLATELET VOLUME 7.8 fl; NEUTROPHILE ABSOLUTE 4.3 Th/cmm (1.8-8.0); RED BLOOD COUNT 5.03 Mil/cmm (3.80-5.20)
[2017-09-14 23:09] LABS: ALB/GLOB RATIO 1.1 (1.0-1.8); ALBUMIN 3.6 gm/dL (3.7-5.3); ALKALINE PHOSPHATASE 120 U/L (34-104); ANION GAP 11.2 (7.0-16.0); BILIRUBIN,TOTAL 0.4 mg/dL (0.3-1.0); BUN - UREA NITROGEN 17 mg/dL (7-25); CALCIUM SERUM 10.3 mg/dL (8.6-10.3); CARBON DIOXIDE 24.2 mEq/L (21.0-31.0); CHLORIDE 108 mEq/L (98-107); GLUCOSE 135 mg/dL (70-105); MAGNESIUM 1.5 mg/dL (1.9-2.7); PHOSPHOROUS 2.7 mg/dL (2.5-5.0); POTASSIUM SERUM 3.4 mEq/L (3.5-5.1); SGOT 32 U/L (13-39); SGPT/ALT 19 U/L (7-52); SODIUM SERUM 140 mEq/L (136-145); TOTAL PROTEIN,SERUM 6.8 gm/dL (6.0-8.3)
[2017-09-14 23:14] LABS: URINE SOURCE CLEAN C
[2017-09-14 23:18] LABS: URINE BILIRUBIN NEGATIVE (NEGATIVE); URINE BLOOD TRACE (NEGATIVE); URINE GLUCOSE (UA) NEGATIVE (NEGATIVE); URINE KETONE NEGATIVE (NEGATIVE); URINE LEUKOCYTE ESTERASE SMALL (NEGATIVE); URINE MICROSCOPIC INDICATED? YES; URINE NITRATE NEGATIVE (NEGATIVE); URINE PH 5.5 (4.6 - 8.0); URINE PROTEIN TRACE mg/dL (NEGATIVE); URINE UROBILINOGEN 0.2 E.U./dL (0.2 - 1.0)
[2017-09-14 23:21] LABS: URINE CLARITY CLEAR (CLEAR); URINE COLOR YELLOW
[2017-09-14 23:40] LABS: URINE BACTERIA OCCASIONAL /hpf (NONE SEEN); URINE EPITHELIAL CELLS FEW /lpf (FEW); URINE HYALINE CAST 0-2 /lpf (0-2)
[2017-09-14 23:42] LABS: URINE WBC 25-50 /hpf (0-5)
[2017-09-14 23:47] LABS: AMPHETAMINE URINE NEGATIVE (NEGATIVE); BARBITURATES URINE NEGATIVE (NEGATIVE); BENZODIAZEPINES QUAL URINE NEGATIVE (NEGATIVE); CANNABINOID THC NEGATIVE (NEGATIVE); COCAINE METABOLITE QUAL URINE NEGATIVE (NEGATIVE); METHADONE URINE NEGATIVE (NEGATIVE); METHAMPHETAMINES QUAL URINE NEGATIVE (NEGATIVE); OPIATES (MORPHINE) QUAL. URINE NEGATIVE (NEGATIVE); PHENCYCLIDINE (PCP) URINE NEGATIVE (NEGATIVE); TRICYCLICS (TCA) QUAL. URINE NEGATIVE (NEGATIVE)
[2017-09-15] MEDS ORDERED: Ciprofloxacin 400mg Premix PB 400 MG/200 ML BAG IV ONE ×2 (00:13→00:52)
--- NOTE | 2017-09-15 00:29 | ED Physician Chart ---
ED Chief Complaint/HPI - Patient Information Date Seen:: 09/14/17 Time Seen:: 21:40 Chief Complaint:: generalized weakness History of Present Illness:: generalized weakness Allergies:: Allergies Allergy/AdvReac Type Severity Reaction Status Date / Time No Known Allergies Allergy Verified 08/12/17 16:56 Vitals:: Vital Signs - 8 hr 09/14/17 21:40 Temp 97.9 F HR 71 RR 18 BP 109/62 O2 Sat % 93 ED Review of Systems - Review of Systems General/Constitutional: No fever, No chills, Weakness Skin: No skin lesions, No rash, No bruising Head: No headache, No light-headedness Eyes: No loss of vision, No pain, No diplopia ENT: No earache, No nasal drainage, No sore throat, No tinnitus Neck: No neck pain, No swelling, No thyromegaly, No stiffness, No mass noted Cardio Vascular: No chest pain, No palpitations, No PND, No orthopnea, No edema Pulmonary: No SOB, No cough, No sputum, No wheezing GI: No nausea, No vomiting, No diarrhea, No pain, No melena, No hematochezia, No constipation, No hematemesis G/U: No dysuria, No frequency, No hematuria Musculoskeletal: No bone or joint pain, No back pain, No muscle pain Endocrine: No polyuria, No polydipsia Psychiatric: No prior psych history, No depression, No anxiety, No suicidal ideation Hematopoietic: No bruising, No lymphadenopathy Allergic/Immuno: No urticaria, No angioedema Neurological: No syncope, No focal symptoms, No weakness, No paresthesia, No headache, No seizure, No dizziness, No confusion, No vertigo Family Medical History - Family Member Mother History Unknown: Yes Ethnicity: Non- ED Physical Exam - Physical Examination General/Constitutional: Awake, Well-developed, well-nourished, Alert, No distress, GCS 15, Non-toxic appearing, Ambulatory Head: Atraumatic Eyes: Lids, conjuctiva normal, PERRL, EOMI Skin: Nl inspection, No rash, No skin lesions, No ecchymosis, Well hydrated, No lymphadenopathy ENMT: External ears, nose nl, Nasal exam nl, Lips, teeth, gums nl Neck: Nontender, Full ROM w/o pain, No JVD, No nuchal rigidity, No bruit, No mass, No stridor Respiratory: Nl effort/Exclusion, Clear to Auscultation, No Wheeze/Rhonchi/Rales Cardio Vascular: RRR, No murmur, gallop, rubs, NL S1 S2 GI: No tenderness/rebounding/guarding, No organomegaly, No hernia, Normal BS's, Nondistended, No mass/bruits, No McBurney tenderness : No CVA tenderness Extremities: No tenderness or effusion, Full ROM, normal strength in all extremities, No edema, Normal digits & nails Neuro/Psych: Alert/oriented, DTR's symmetric, Normal sensory exam, Normal motor strength, Judgement/insight normal, Mood normal, Normal gait, No focal deficits Misc: Normal back, No paraspinal tenderness ED Labs/Radiology/EKG Results - Lab Results Results: Laboratory Tests 09/14/17 09/14/17 09/14/17 22:40 22:40 22:40 WBC 7.9 RBC 5.03 Hgb 14.8 Hct 44.4 MCV 88.3 MCH 29.4 MCHC Differential 33.3 RDW 14.4 Plt Count 279 MPV 7.8 Neutrophils % 55.0 Lymphocytes % 29.7 Monocytes % 10.0 Eosinophils % 4.5 Basophils % 0.8 Sodium 140 Potassium 3.4 L Chloride 108 H Carbon Dioxide 24.2 Anion Gap 11.2 BUN 17 Creatinine 1.0 Est GFR ( Amer) TNP Est GFR (Non-Af Amer) TNP BUN/Creatinine Ratio 17.0 Glucose 135 H Calcium 10.3 Phosphorus 2.7 Magnesium 1.5 L Total Bilirubin 0.4 AST 32 ALT 19 Alkaline Phosphatase 120 H Total Protein 6.8 Albumin 3.6 L Globulin 3.2 Albumin/Globulin Ratio 1.1 TSH 4.80 Urine Source Urine Color Urine Clarity Urine pH Ur Specific [place] Urine Protein Urine Glucose (UA) Urine Ketones Urine Blood Urine Nitrate Urine Bilirubin Urine Urobilinogen Ur Leukocyte Esterase Urine RBC Urine WBC Ur Epithelial Cells Urine Bacteria Hyaline Casts Urine Opiates Screen Urine Methadone Screen Ur Barbiturates Screen Ur Tricyclics Screen Ur Phencyclidine Scrn Amphetamines Screen U Methamphetamines Scrn U Benzodiazepines Scrn U Cocaine Metab Screen U Cannabinoids Screen 09/14/17 09/14/17 23:05 23:05 WBC RBC Hgb Hct MCV MCH MCHC Differential RDW Plt Count MPV Neutrophils % Lymphocytes % Monocytes % Eosinophils % Basophils % Sodium Potassium Chloride Carbon Dioxide Anion Gap BUN Creatinine Est GFR ( Amer) Est GFR (Non-Af Amer) BUN/Creatinine Ratio Glucose Calcium Phosphorus Magnesium Total Bilirubin AST ALT Alkaline Phosphatase Total Protein Albumin Globulin Albumin/Globulin Ratio TSH Urine Source CLEAN C Urine Color YELLOW Urine Clarity CLEAR Urine pH 5.5 Ur Specific [place] 1.020 Urine Protein TRACE Urine Glucose (UA) NEGATIVE Urine Ketones NEGATIVE Urine Blood TRACE Urine Nitrate NEGATIVE Urine Bilirubin NEGATIVE Urine Urobilinogen 0.2 Ur Leukocyte Esterase SMALL H Urine RBC 2-5 Urine WBC 25-50 H Ur Epithelial Cells FEW Urine Bacteria OCCASIONAL Hyaline Casts 0-2 H Urine Opiates Screen NEGATIVE Urine Methadone Screen NEGATIVE Ur Barbiturates Screen NEGATIVE Ur Tricyclics Screen NEGATIVE Ur Phencyclidine Scrn NEGATIVE Amphetamines Screen NEGATIVE U Methamphetamines Scrn NEGATIVE U Benzodiazepines Scrn NEGATIVE U Cocaine Metab Screen NEGATIVE U Cannabinoids Screen NEGATIVE ED Assessment - Assessment General Assessment: resting comfortably Assessment/Comments:: spoke to Dr. Gunderson at 00:15 about admitting this patient. ED Septic Shock - . Is Septic Shock (SBP<90, OR Lactate>4 mmol\L) present?: No - <6hrs of presentation: Vital Signs: Vital Signs - 8 hr 09/14/17 21:40 Temp 97.9 F HR 71 RR 18 BP 109/62 O2 Sat % 93 ED Reassessment (Disposition) - Reassessment Reassessment Condition:: Unchanged - Diagnosis Diagnosis:: generalized weakness urinary tract infection
[2017-09-15 02:34] VITALS: BP 147/66
[2017-09-15 07:30] LABS: % BASOPHILS 0.8 % (0.0-2.0); % EOSINOPHILS 4.7 % (0.0-5.0); % LYMPHOCYTES 30.9 % (20.0-50.0); % MONOCYTES 12.1 % (2.0-10.0); % NEUTROPHILS 51.5 % (40.0-80.0); BASOPHILE ABSOLUTE 0.1 Th/cumm (0-0.2); EOSINOPHILE ABSOLUTE 0.3 Th/cmm (0.1-0.4); HEMATOCRIT 39.6 % (41.0-60); HEMOGLOBIN 13.5 gm/dL (12-16); MEAN CELL VOLUME 87.1 fl (81-100); MEAN CORPUSCULAR HEMOGLOBIN 29.7 pg (27.0-31.0); MEAN CORPUSCULAR HGB CONC 34.1 pg (28.0-36.0); MEAN PLATELET VOLUME 7.8 fl; MONOCYTE ABSOLUTE 0.8 Th/cmm (0.3-1.0); NEUTROPHILE ABSOLUTE 3.2 Th/cmm (1.8-8.0); RED BLOOD COUNT 4.54 Mil/cmm (3.80-5.20); RED CELL DISTRIBUTION WIDTH 14.3 % (11.5-20.0); WHITE BLOOD COUNT 6.4 Th/cmm (4.8-10.8)
[2017-09-15 07:44] LABS: PLATELET COUNT 219 Th/cmm (150-400)
[2017-09-15 07:51] LABS: ANION GAP 9.3 (7.0-16.0); BUN - UREA NITROGEN 17 mg/dL (7-25); CARBON DIOXIDE 26.2 mEq/L (21.0-31.0); CHLORIDE 109 mEq/L (98-107); CREATININE - SERUM 0.9 mg/dL (0.6-1.2); GLUCOSE 111 mg/dL (70-105); POTASSIUM SERUM 3.5 mEq/L (3.5-5.1); SODIUM SERUM 141 mEq/L (136-145)
[2017-09-15 07:53] LABS: CHOLESTEROL 144 mg/dL (<200); HDL -HIGH DENSITY LIPOPROTEIN 29 mg/dL (23-92); TRIGLYCERIDES 152 mg/dL (<150)
[2017-09-15] MEDS ORDERED: Non-Formulary Item 1 EA (Sertraline Hcl [Zoloft] 100 MG) PO SCH (09:00)
[2017-09-15] MEDS ORDERED: LANSOPRAZOLE 20 MG PO SCH (09:00)
[2017-09-15] MEDS ORDERED: Levothyroxine 0.1 Mg Tab PO SCH (09:00)
[2017-09-15] MEDS: Pantoprazole 40 mg EC Tab PO SCH (09:58)
--- NOTE | 2017-09-15 14:02 | History & Physical ---
ADMIT DATE: 09/15/2017 CHIEF COMPLAINT: Weakness. HISTORY OF PRESENT ILLNESS: This is an 81-year-old female who was admitted from [facility] to the Emergency Room due to increase in weakness. REVIEW OF SYSTEMS: GENERAL: This is an 81-year-old female that appears as stated. Denies fever. Positive for weakness. HEENT: Head: Denies headache. Denies dizziness. Eyes: Denies eye pain. Denies blurring of vision. NECK: Denies neck pain. Denies nuchal rigidity. CHEST: Denies chest pain. Denies palpitation. PULMONARY: Denies shortness of breath. Denies coughing. GASTROINTESTINAL: Denies abdominal pain. Denies diarrhea. Denies constipation. MUSCULOSKELETAL: Denies muscle pain or joint pains. SOCIAL HISTORY: The patient lives in a [facility] prior to hospitalization. The patient denies nicotine or alcohol use. Denies any illicit drug use. PAST SURGICAL HISTORY: Unremarkable. FAMILY HISTORY: Unremarkable. PAST MEDICAL HISTORY: Includes hypothyroidism, hypertension, gastroesophageal reflux disease, depression. PHYSICAL EXAMINATION: VITAL SIGNS: Temperature 96.7, heart rate 69, blood pressure 148/60, respiration rate 18, and 93% on room air. GENERAL: This is an 81-year-old female that appears as stated in no acute distress. HEENT: Head is atraumatic, normocephalic. Eyes: Bilateral conjunctivae are clear. Bilateral pupils equal and round and reactive. NECK: Supple. No JVD. CARDIOVASCULAR: S1 and S2, without murmur. PULMONARY: Clear to auscultation. GASTROINTESTINAL: Soft and nontender without guarding. Positive bowel sounds. MUSCULOSKELETAL: No clubbing. No cyanosis noted. ASSESSMENT: 1. Urinary tract infection. 2. Hypertension. 3. Hypothyroidism. 4. Gastroesophageal reflux disease. 5. Depression. PLAN: We will admit the patient to Med/Surg Unit. We will start the patient on Levaquin 500 mg IV once a day. We will do medication reconciliation accordingly. Treatment plans were discussed with the patient's nurse. Treatment plans were discussed with Dr. Gunderson. JOB# [id number]
[2017-09-15] MEDS: Levofloxacin 500mg/100mL 500 MG/100 ML BAG IV SCH (20:30)
[2017-09-16] MEDS: Levothyroxine 0.125 Mg Tab PO SCH (06:37)
[2017-09-16] MEDS ORDERED: Magnesium Sulfate 2 gm/50 mL Premix Bag IV SCH (07:45)
[2017-09-16] MEDS: Pantoprazole 40 mg EC Tab PO SCH (08:56)
--- NOTE | 2017-09-16 11:44 | General Progress Note ---
Subjective - Review of Systems Events since last encounter: patient c/o generalized weakness denies pain Objective - Results Result Diagrams: 09/15/17 07:01 09/15/17 07:01 Recent Labs: Laboratory Last Values WBC 6.4 Th/cmm (4.8-10.8) 09/15/17 07:01 RBC 4.54 Mil/cmm (3.80-5.20) 09/15/17 07:01 Hgb 13.5 gm/dL (12-16) 09/15/17 07:01 Hct 39.6 % (41.0-60) L 09/15/17 07:01 MCV 87.1 fl (81-100) 09/15/17 07:01 MCH 29.7 pg (27.0-31.0) 09/15/17 07:01 MCHC Differential 34.1 pg (28.0-36.0) 09/15/17 07:01 RDW 14.3 % (11.5-20.0) 09/15/17 07:01 Plt Count 219 Th/cmm (150-400) D 09/15/17 07:01 MPV 7.8 fl 09/15/17 07:01 Neutrophils % 51.5 % (40.0-80.0) 09/15/17 07:01 Lymphocytes % 30.9 % (20.0-50.0) 09/15/17 07:01 Monocytes % 12.1 % (2.0-10.0) H 09/15/17 07:01 Eosinophils % 4.7 % (0.0-5.0) 09/15/17 07:01 Basophils % 0.8 % (0.0-2.0) 09/15/17 07:01 Sodium 141 mEq/L (136-145) 09/15/17 07:01 Potassium 3.5 mEq/L (3.5-5.1) 09/15/17 07:01 Chloride 109 mEq/L (98-107) H 09/15/17 07:01 Carbon Dioxide 26.2 mEq/L (21.0-31.0) 09/15/17 07:01 Anion Gap 9.3 (7.0-16.0) 09/15/17 07:01 BUN 17 mg/dL (7-25) 09/15/17 07:01 Creatinine 0.9 mg/dL (0.6-1.2) 09/15/17 07:01 Est GFR ( Amer) TNP 09/15/17 07:01 Est GFR (Non-Af Amer) TNP 09/15/17 07:01 BUN/Creatinine Ratio 18.9 09/15/17 07:01 Glucose 111 mg/dL (70-105) H 09/15/17 07:01 Calcium 10.0 mg/dL (8.6-10.3) 09/15/17 07:01 Phosphorus 2.7 mg/dL (2.5-5.0) 09/14/17 22:40 Magnesium 1.4 mg/dL (1.9-2.7) L 09/16/17 06:50 Total Bilirubin 0.4 mg/dL (0.3-1.0) 09/14/17 22:40 AST 32 U/L (13-39) 09/14/17 22:40 ALT 19 U/L (7-52) 09/14/17 22:40 Alkaline Phosphatase 120 U/L (34-104) H 09/14/17 22:40 Total Protein 6.8 gm/dL (6.0-8.3) 09/14/17 22:40 Albumin 3.6 gm/dL (3.7-5.3) L 09/14/17 22:40 Globulin 3.2 gm/dL 09/14/17 22:40 Albumin/Globulin Ratio 1.1 (1.0-1.8) 09/14/17 22:40 Triglycerides 152 mg/dL (<150) H 09/15/17 07:01 Cholesterol 144 mg/dL (<200) 09/15/17 07:01 LDL Cholesterol Direct 86 mg/dL (75-193) 09/15/17 07:01 HDL Cholesterol 29 mg/dL (23-92) 09/15/17 07:01 TSH 4.80 uIU/ml (0.34-5.60) 09/14/17 22:40 Urine Source CLEAN C 09/14/17 23:05 Urine Color YELLOW 09/14/17 23:05 Urine Clarity CLEAR (CLEAR) 09/14/17 23:05 Urine pH 5.5 (4.6 - 8.0) 09/14/17 23:05 Ur Specific [place] 1.020 (1.005-1.030) 09/14/17 23:05 Urine Protein TRACE mg/dL (NEGATIVE) 09/14/17 23:05 Urine Glucose (UA) NEGATIVE mg/dL (NEGATIVE) 09/14/17 23:05 Urine Ketones NEGATIVE mg/dL (NEGATIVE) 09/14/17 23:05 Urine Blood TRACE (NEGATIVE) 09/14/17 23:05 Urine Nitrate NEGATIVE (NEGATIVE) 09/14/17 23:05 Urine Bilirubin NEGATIVE (NEGATIVE) 09/14/17 23:05 Urine Urobilinogen 0.2 E.U./dL (0.2 - 1.0) 09/14/17 23:05 Ur Leukocyte Esterase SMALL (NEGATIVE) H 09/14/17 23:05 Urine RBC 2-5 /hpf (0-5) 09/14/17 23:05 Urine WBC 25-50 /hpf (0-5) H 09/14/17 23:05 Ur Epithelial Cells FEW /lpf (FEW) 09/14/17 23:05 Urine Bacteria OCCASIONAL /hpf (NONE SEEN) 09/14/17 23:05 Hyaline Casts 0-2 /lpf (0-2) H 09/14/17 23:05 Urine Opiates Screen NEGATIVE (NEGATIVE) 09/14/17 23:05 Urine Methadone Screen NEGATIVE (NEGATIVE) 09/14/17 23:05 Ur Barbiturates Screen NEGATIVE (NEGATIVE) 09/14/17 23:05 Ur Tricyclics Screen NEGATIVE (NEGATIVE) 09/14/17 23:05 Ur Phencyclidine Scrn NEGATIVE (NEGATIVE) 09/14/17 23:05 Amphetamines Screen NEGATIVE (NEGATIVE) 09/14/17 23:05 U Methamphetamines Scrn NEGATIVE (NEGATIVE) 09/14/17 23:05 U Benzodiazepines Scrn NEGATIVE (NEGATIVE) 09/14/17 23:05 U Cocaine Metab Screen NEGATIVE (NEGATIVE) 09/14/17 23:05 U Cannabinoids Screen NEGATIVE (NEGATIVE) 09/14/17 23:05 - Physical Exam Vitals and I&O: Vital Signs Temp 98.1 F 09/16/17 08:06 Pulse 79 09/16/17 08:56 Resp 18 09/16/17 08:06 BP 142/80 09/16/17 08:56 Pulse Ox 97 09/16/17 08:06 Intake & Output 09/15/17 09/16/17 09/16/17 18:59 06:59 18:59 Intake Total 550 500 Output Total 3 Balance 547 500 Weight (lbs) 63.911 kg 63.911 kg Intake: Oral 550 500 Output: Urine 3 Stool 0 Other: # Voids 2 Stool Characteristics Soft Soft Brown Brown Weight Source Bedscale Bedscale Active Medications: Current Medications Gabapentin (Neurontin) 300 mg PO DAILY RAFAEL Stop: 11/14/17 08:59 Last Admin: 09/16/17 08:57 Dose: 300 mg Levofloxacin (Levaquin Pb) 500 mg in 100 mls @ 100 mls/hr IV Q24HR RAFAEL Stop: 11/14/17 20:59 Last Admin: 09/15/17 20:30 Dose: 100 mls/hr Magnesium Sulfate (Magnesium Sulfate Premix) 4 gm in 100 mls @ 25 mls/hr IV 0745 RAFAEL Stop: 09/16/17 13:00 Last Admin: 09/16/17 08:30 Dose: 25 mls/hr Levothyroxine Sodium (Synthroid) 0.125 mg PO QDAC RAFAEL Stop: 11/14/17 08:59 Last Admin: 09/16/17 06:37 Dose: 0.125 mg Metoprolol Tartrate (Lopressor) 50 mg PO DAILY RAFAEL Stop: 11/14/17 08:59 Last Admin: 09/16/17 08:56 Dose: 50 mg Pantoprazole Sodium (Protonix) 40 mg PO DAILY RAFAEL Stop: 11/14/17 08:59 Last Admin: 09/16/17 08:56 Dose: 40 mg Sertraline HCl (Zoloft) 100 mg PO BID RAFAEL Stop: 11/14/17 16:59 Last Admin: 09/16/17 08:56 Dose: 100 mg
[2017-09-16] MEDS: Levofloxacin 500mg/100mL 500 MG/100 ML BAG IV SCH (21:00)
[2017-09-17 05:38] LABS: ALB/GLOB RATIO 1.2 (1.0-1.8); ALBUMIN 3.1 gm/dL (3.7-5.3); ALKALINE PHOSPHATASE 86 U/L (34-104); ANION GAP 8.9 (7.0-16.0); BILIRUBIN,TOTAL 0.4 mg/dL (0.3-1.0); BUN - UREA NITROGEN 18 mg/dL (7-25); CALCIUM SERUM 9.8 mg/dL (8.6-10.3); CARBON DIOXIDE 26.5 mEq/L (21.0-31.0); CHLORIDE 107 mEq/L (98-107); CREATININE - SERUM 0.9 mg/dL (0.6-1.2); GLUCOSE 98 mg/dL (70-105); MAGNESIUM 1.8 mg/dL (1.9-2.7); PHOSPHOROUS 3.4 mg/dL (2.5-5.0); POTASSIUM SERUM 3.4 mEq/L (3.5-5.1); SGOT 20 U/L (13-39); SGPT/ALT 11 U/L (7-52); SODIUM SERUM 139 mEq/L (136-145); TOTAL PROTEIN,SERUM 5.8 gm/dL (6.0-8.3)
[2017-09-17 05:48] LABS: % BASOPHILS 0.5 % (0.0-2.0); % EOSINOPHILS 5.3 % (0.0-5.0); % LYMPHOCYTES 30.3 % (20.0-50.0); % MONOCYTES 12.8 % (2.0-10.0); % NEUTROPHILS 51.1 % (40.0-80.0); EOSINOPHILE ABSOLUTE 0.3 Th/cmm (0.1-0.4); HEMATOCRIT 38.4 % (41.0-60); HEMOGLOBIN 12.9 gm/dL (12-16); LYMPHOCYTE ABSOLUTE 1.8 Th/cmm (1.5-3.0); MEAN CELL VOLUME 88.3 fl (81-100); MEAN CORPUSCULAR HEMOGLOBIN 29.8 pg (27.0-31.0); MEAN CORPUSCULAR HGB CONC 33.8 pg (28.0-36.0); MEAN PLATELET VOLUME 7.6 fl; MONOCYTE ABSOLUTE 0.7 Th/cmm (0.3-1.0); PLATELET COUNT 214 Th/cmm (150-400); RED BLOOD COUNT 4.34 Mil/cmm (3.80-5.20); RED CELL DISTRIBUTION WIDTH 14.3 % (11.5-20.0); WHITE BLOOD COUNT 5.8 Th/cmm (4.8-10.8)
[2017-09-17] MEDS ORDERED: Mag Sulfate 2gm/50mL Premix 2 GM/50 ML BAG IV ONE (08:13)
[2017-09-17] MEDS ORDERED: Potassium Chloride 20 mEq ER Tab PO ONE (08:14)
[2017-09-17] MEDS: Levothyroxine 0.125 Mg Tab PO SCH (08:15)
[2017-09-17] MEDS: Pantoprazole 40 mg EC Tab PO SCH (09:15)
[2017-09-17] MEDS: Levofloxacin 500mg/100mL 500 MG/100 ML BAG IV SCH (21:03)
[2017-09-18 04:56] LABS: % BASOPHILS 0.7 % (0.0-2.0); % EOSINOPHILS 3.6 % (0.0-5.0); % LYMPHOCYTES 28.9 % (20.0-50.0); % MONOCYTES 11.5 % (2.0-10.0); % NEUTROPHILS 55.3 % (40.0-80.0); EOSINOPHILE ABSOLUTE 0.2 Th/cmm (0.1-0.4); HEMATOCRIT 37.3 % (41.0-60); HEMOGLOBIN 12.6 gm/dL (12-16); LYMPHOCYTE ABSOLUTE 1.8 Th/cmm (1.5-3.0); MEAN CELL VOLUME 87.9 fl (81-100); MEAN CORPUSCULAR HEMOGLOBIN 29.7 pg (27.0-31.0); MEAN CORPUSCULAR HGB CONC 33.8 pg (28.0-36.0); MEAN PLATELET VOLUME 7.3 fl; MONOCYTE ABSOLUTE 0.7 Th/cmm (0.3-1.0); NEUTROPHILE ABSOLUTE 3.6 Th/cmm (1.8-8.0); PLATELET COUNT 207 Th/cmm (150-400); RED BLOOD COUNT 4.24 Mil/cmm (3.80-5.20); RED CELL DISTRIBUTION WIDTH 14.2 % (11.5-20.0); WHITE BLOOD COUNT 6.3 Th/cmm (4.8-10.8)
[2017-09-18 05:35] LABS: ANION GAP 8.7 (7.0-16.0); BUN - UREA NITROGEN 18 mg/dL (7-25); CALCIUM SERUM 9.8 mg/dL (8.6-10.3); CARBON DIOXIDE 25.8 mEq/L (21.0-31.0); CHLORIDE 107 mEq/L (98-107); CREATININE - SERUM 0.9 mg/dL (0.6-1.2); GLUCOSE 104 mg/dL (70-105); MAGNESIUM 2.1 mg/dL (1.9-2.7); POTASSIUM SERUM 3.5 mEq/L (3.5-5.1); SODIUM SERUM 138 mEq/L (136-145)
[2017-09-18] MEDS: Pantoprazole 40 mg EC Tab PO SCH (09:44)
[2017-09-18] MEDS: Levothyroxine 0.125 Mg Tab PO SCH (09:45)
== END 2017-09-18 18:40 | disposition home or self-care (01) | DRG 690 ==
LOC: ER 21:40 → MSI 09-15 01:15
PROVIDERS: ADMIT Internal Medicine; ATTEND Internal Medicine
DX: N39.0 Urinary tract infection, site not specified (principal); I10 Essential (primary) hypertension; K21.9 Gastro-esophageal reflux disease without esophagitis; F32.9 Major depressive disorder, single episode, unspecified; E03.9 Hypothyroidism, unspecified
CPT/HCPCS: 36415-UA; 80048-TC; 80053-TC; 80061-TC; 80307; 81001-TC; 83735-TC; 84100-TC; 84443-TC; 85025-TC; 87086-90; J0744; J1956; J3475; Z7610